=== PATIENT | male | born 1950 | race Caucasian/White ===

== ENCOUNTER 2018-03-08 05:53 | Day surgery (SDC) | payer MEDICARE, OTHER, SELFPAY ==
[2018-03-08] VITALS (7 sets, daily range): BP systolic 100–150; BP diastolic 61–89; PULSE 57–62; RESP 16; TEMP 36.2–36.6; O2SAT 94–99; BMI 24.2
[2018-03-08] MEDS: Cefazolin 2 GM in 0.9% Normal Saline 100 ML IV (07:23)
[2018-03-08] MEDS: Lubricating Jelly 60 GM Tube 30 GM TOPICAL (07:45)
--- NOTE | 2018-03-08 07:49 | PCM.DC.URO ---
Discharge Diet: Light diet - advance as tolerated Allergies/Adverse Reactions: Allergies morphine Allergy (Verified 03/06/18 14:45) Vomiting Medications to take at Discharge NK [NK] 03/06/18 Primary Care Physician: Care Physician,No Primary [Primary Care Provider] - Test Results: Test results from this visit will be discussed in further detail at your follow-up appointment, if applicable. Please Follow Up With: Bo West MD
--- NOTE | 2018-03-08 07:50 | PCM.OPRPT ---
Report of Operation Date of Procedure: 03/08/18 Pre-Operative Diagnosis: Right obstructing kidney stones and right hydronephrosis Post-Operative Diagnosis: Same Surgery/Procedure Performed:: Cystoscopy, right retrograde pyelogram, right stent placement Description of Surgical Findings:: 67-year-old male whose obstructing stones on CAT scan has hydronephrosis is been having severe pain off and on the right kidney. Today when taken for surgery for cystoscopy and stent placement to alleviate the obstruction and then will plan for definitive surgery for his stones later this month. 67-year-old male taken back to the operating room at the [facility] he was placed in dorsal lithotomy position went of the bladder with a 21 Tristanian rigid cystourethroscope the entire length the urethra is normal prostate was normal inside the bladder some debris from stone material, I then cannulated the right ureteral orifice with a Glidewire and a Pollack catheter performed a retrograde pyelogram on the retrograde pyelogram he could see the obstruction and the stones appeared radiolucent. I then advanced a wire up the Pollack catheter into the kidney and then over the wire place a stent X Tristanian by 24 cm stent. Pulled the wire stent: Kidney bladder good position drain the bladder patient's anesthesia was reversed taken back to PACU good condition plan is to bring him back later this month for definitive stone treatment. Type of Anesthesia:: General Drains: stent right side - Admit VTE Documentation VTE Present on Admission: No VTE Mechan Device Prophylaxis: SCD's
== END 2018-03-08 10:38 | disposition home or self-care (01) ==
LOC: SDC 05:55 → AC 05:56
PROVIDERS: Visit Provider Urology
PROC: (CPT 52332; principal; 2018-03-08 07:20)
DX: N13.2 Hydronephrosis with renal and ureteral calculous obstruction (principal); K21.9 Gastro-esophageal reflux disease without esophagitis
CPT/HCPCS: 52332; 76000; J7120; C1769; C2617; J2405

== ENCOUNTER 2018-03-12 10:54 | Inpatient (IN) | payer MEDICARE, OTHER, SELFPAY ==
[2018-03-12] VITALS (13 sets, daily range): BP systolic 91–134; BP diastolic 49–77; PULSE 92–116; RESP 16–32; TEMP 37.4–39.5; O2SAT 89–97; BMI 25.0; BMI 24.2
--- NOTE | 2018-03-12 11:29 | ED.DCSUM_ITS ---
- ER Visit Summary Date of Service: 03/12/18 Chief Complaint: Fever History of Present Illness: The patient is a 67 M status post ureteral calculi on the right with a ureteral stent placed by Dr. Hawthorne on . Yesterday patient started having fever and chills. He also had one episode of nausea and vomiting. No diarrhea. No abdominal pain. No cough. He had a similar event one other time when he had a urinary tract infection with a kidney stone. Physical Examination: Older male no acute distress. Vital signs are stable he does have a fever of 103.1. Blood pressure 134/77. He does not look septic or toxic. H EENT exam unremarkable. Neck nontender. Lungs clear to auscultation bilaterally. Heart regular rhythm no murmur. Abdomen is soft and nondistended. Normal bowel sounds no peritoneal signs. Moving all 4 extremities. Calves nontender. Neurologically he is awake and alert with no focal motor or sensory deficits. Back is nontender. Skin is unremarkable. No peripheral edema. Test Results: CBC shows a white count 12.2. Normal hemoglobin. No bands. Chemistries unremarkable. Gap of 8. Creatinine 1.1. Urinalysis shows greater than 100 white cells. Greater than 100 red cells and 4+ bacteria. A culture was sent. Cultures are also pending. Emergency Department Course and Treatment: Patient treated with a liter normal saline. P.o. Tylenol. Also treated with IV Rocephin. On repeat exam no significant change. Discussed the patient is . In the past he had a stone with an infection and needed to be hospitalized. They requested the patient be hospitalized for further treatment. Treatment Plan: I spoke to the hospitalist Dr. Kalani Zapien and the patient will be admitted. Disposition: [place] Impression: Acute fever Status post right 9 mm kidney stone with ureteral stent This note was generated with [employer] dictation software. It may contain incorrect words, spelling, and punctuation that were not noted in review of the chart prior to signing ED Disposition - Plan for ED Patient: Chief Complaint: Fever Referrals: Care Physician,No Primary [Primary Care Provider] -
[2018-03-12] MEDS: Acetaminophen 500 MG Tablet 1000 MG PO (11:39)
[2018-03-12] MEDS: 0.9% Normal Saline 1,000 ML 1000 ML IV (11:39)
[2018-03-12] MEDS: Ondansetron 4 MG/2 ML Vial IV (11:39)
[2018-03-12 11:45] LABS: Absolute Lymphocyte Count 0.85 X10^3/ul (0.83-4.51); Absolute Neutrophil Count 10.8 X10^3/uL (2.0-7.7); Basophil# 0.01 X10^3/uL; Basophil% 0.1 % (0-1); Hematocrit 43.9 % (40-54); Hemoglobin 14.9 g/dl (13.0-16.5); Lymphocyte # 0.85 X10^3/ul (4.0); Mean Corp Hgb Conc 33.9 g/gl (32-36); Mean Corpuscular Hgb 31.1 pg (27.0-32.0); Mean Corpuscular Volume 91.6 fL (80-94); Mean Platelet Vol. 8.4 fl (6.2-12.0); Monocyte% 4.1 % (0-10); Neutrophil # 10.81 X10^3/uL (2.7-7.7); Neutrophil % 88.7 % (47-70); Platelet Count 157 K/mm3 (150-450); RBC Distribution Width CV 12.8 % (11.6-14.6); RBC Distribution Width SD 42.9 fl (35.1-43.9); Red Blood Count 4.79 M/mm3 (4.6-6.2); White Blood Count 12.2 K/mm3 (4.4-11.0)
[2018-03-12 11:47] LABS: POSITIVE COUNT NO; POSITIVE DIFFERENTIAL NO; POSITIVE MORPHOLOGY NO
[2018-03-12 12:04] LABS: Anion Gap 8 (5-15); BUN 15 mg/dL (7-18); BUN/Creat Ratio 12.9 RATIO (10-20); Calcium,Total 9.1 mg/dL (8.5-10.1); Chloride 102 mmol/L (98-107); Creatinine, Serum 1.16 mg/dL (0.70-1.30); EST Glomerular Filtration Rate 66 mL/min (>60); Est Glom Filt Rate - Afr Amer 80 mL/min (>60); Estimated Creatinine Clearance 58.15 ml/min; Glucose 130 mg/dL (74-106); Potassium 3.9 mmol/L (3.5-5.1); Sodium Level 137 mmol/L (136-145)
[2018-03-12 14:22] LABS: Mucous, Urine 0 SEEN /hpf (<or=2+); Squamous Epithelial Cells - UA 0 SEEN /hpf (0-5)
[2018-03-12 14:25] LABS: Color, Urine Red (Yellow); Glucose, Dipstick Normal (Normal); Ketone-Dipstick 5 mg/dl (Negative); Leukocyte Esterase-Dipstick 500 /ul (Negative); Nitrite-Dipstick Negative (Negative); Occult Blood-Urine 250 /ul (Negative); Protein-Dipstick 100 mg/dl (Negative); Specific Gravity, Urine 1.015 (1.002-1.030); Urine Bilirubin Dipstick Negative (Negative); Urine Clarity Turbid (Clear); Urine Urobilinogen 1 mg/dl (Normal); Urine pH 6.5 (5.0 - 8.0)
[2018-03-12 14:35] LABS: Bacteria 4+ /hpf (None Seen); Red Blood Cells-Urine > 100 SEEN /hpf (0-5); White Blood Cells >100 SEEN /hpf (0-5)
--- NOTE | 2018-03-12 16:37 | NURSING ---
DR ASCENCIO IN ER
--- NOTE | 2018-03-12 16:37 | NURSING ---
MED SURG SESPSIS, UTI, RECENT STENT WHITE
--- NOTE | 2018-03-12 16:47 | PCM.HP.STD ---
Problem List (1) Sepsis Status: Acute (2) UTI (urinary tract infection) Status: Acute (3) Renal calculi Status: Chronic (4) GERD (gastroesophageal reflux disease) Status: Chronic (5) Esophageal ulcer Status: Chronic History of Present Illness Date of Admission: 03/12/18 Chief Complaint: fever The patient is a 67 year old M with a past medical hx of renal calculi recently with right 9mm stone s/p stent placement on the with plan for laser litho on 03/30, also with hx of GERD, esophageal ulcers, who presents to the ER with fever since yesterday. Pt had some hematuria initially after the stent but since has resolved. He has had dysuria, fevers chills, rigors and right sided abdominal pain when urinating since yesterday. He has had nausea and vomiting this AM. No flank pain. He appears septic in the ER with tachycardia fever and leukocytosis. He was given IV rocephin. He has a hx of pyelo after a cystoscopy in 2004. Dr. Ruiz will be consulted. [] Past Medical History Past Medical History (Chronic Problems): Chronic Problems Renal calculi (Chronic) GERD (gastroesophageal reflux disease) (Chronic) Esophageal ulcer (Chronic) Allergies morphine Allergy (Verified 03/12/18 10:54) Vomiting Home Medications: Ambulatory Orders Medication Instructions Recorded Cimetidine [Tagamet Hb] 200 mg PO PRN PRN 03/12/18 Hydrocodone/Acetaminophen 1 tab PO Q6H PRN PRN 03/12/18 [Hydrocodone-Acetamin 5-325 mg] Naproxen [Naproxen] 500 mg PO DAILY 03/12/18 Surgical History: - - ankle repair, ulnar surgery, elbow repair Psychiatric History: No pertinent psych hx Lives: Spouse/ Significant Other Smoking Status: Never smoker Tobacco Use: Non-smoker Alcohol: None Drugs: None Review of Systems Constitutional: Reports: Chills, Fever, - - rigors. Denies: Weight Change HEENT: Denies: Head Aches, Sinus Congestion, Sinus Drainage Cardiovascular: Denies: Chest Pain, Palpitations Respiratory: Denies: Cough, Shortness of breath at rest, Sputum production Gastrointestinal: Reports: Abdominal Pain, Nausea, Vomiting Genitourinary: Reports: Dysuria, Hematuria Musculoskeletal: Denies: Joint Pain, Joint Tenderness Skin: Denies: Rash, Wounds Neurological: Denies: Numbness, Tingling, Focal weakness Psychiatric: Denies: Anxiety, Depression, Homicidal Ideations, Suicidal Ideations Hematologic/ Lymphatic: Denies: Easy Bruising, Easy Bleeding VTE Information - Inpt Only VTE Present on Admission: No VTE Mechan Device Prophylaxis: SCD's, None VTE Pharm Prophylaxis ordered?: Yes Patient Problems: Active and Suspected Problems Sepsis (Acute) UTI (urinary tract infection) (Acute) - Physical Exam General: Alert, Oriented x3, Cooperative HEENT: Atraumatic, PERRLA, EOMI, Normocephalic Neck: Supple, No JVD, Negative Carotid Bruits Lungs: Clear to auscultation, Normal air movement Cardiovascular: No murmurs, Tachycardic Abdomen: Bowel Sounds Present, Soft, Non Tender, - - no cva tenderness Extremities: No edema, Capillary Refill Less than 3 Seconds Skin: No rashes, No breakdown Musculoskeletal: No Tenderness to Palpation of Joints or Extremities Neurological: Cranial nerves II-XII grossly intact Psych/Mental Status: Normal Affect, Appropriate, Alert and oriented to time, place, person, mood and affect Vital Signs Temp Pulse Resp BP Pulse Ox 99.9 F H 116 H 18 113/72 93 03/12/18 13:12 03/12/18 16:25 03/12/18 16:25 03/12/18 16:25 03/12/18 16:25 Oxygen Flow Rate (L/min) 3 Oxygen Delivery Method Room Air Weight: 165 lb Body Mass Index (BMI) 25.0 Laboratory Tests Past 24 Hrs 03/12/18 03/12/18 03/12/18 11:37 11:37 14:15 WBC 12.2 H RBC 4.79 Hgb 14.9 Hct 43.9 MCV 91.6 MCH 31.1 MCHC 33.9 RDW 12.8 RDW Differential 42.9 Plt Count 157 MPV 8.4 Immature Gran % (Auto) 0.100 Neut % (Auto) 88.7 H Lymph % (Auto) 7.0 L [place] % (Auto) 4.1 Eos % (Auto) 0.0 Baso % (Auto) 0.1 Absolute Neuts (auto) 10.8 H Absolute Lymphs (auto) 0.85 Total Counted Not Reportable Sodium 137 Potassium 3.9 Chloride 102 Carbon Dioxide 27.0 Anion Gap 8 BUN 15 Creatinine 1.16 Estim Creat Clear Calc 58.15 Est GFR (MDRD) Af Amer 80 Est GFR (MDRD) Non-Af 66 BUN/Creatinine Ratio 12.9 Glucose 130 H Calcium 9.1 Urine Color Red Urine Clarity Turbid Urine pH 6.5 Ur Specific [place] 1.015 Urine Protein 100 H Urine Glucose (UA) Normal Urine Ketones 5 H Urine Occult Blood 250 H Urine Nitrite Negative Urine Bilirubin Negative Urine Urobilinogen 1 H Ur Leukocyte Esterase 500 H Urine RBC > 100 SEEN Urine WBC >100 SEEN Ur Squamous Epith Cells 0 SEEN Urine Bacteria 4+ Urine Mucus 0 SEEN Assessment/Plan All Active Problems Sepsis (Acute) UTI (urinary tract infection) (Acute) 1. Acute sepsis 2/2 acute UTI s/p recent stenting for 9mm renal calculi 03/08/2018 - consult Jenna Mason out of town. Continue rocephin + gent. + Fever, tachy, leukocytosis, toxic appearance in the ER. LA pending. CT abdomen pending. + UA, culture pending. +subjective fever, chills, rigors, abdominal pain, dysuria, hematuria. -initial plan was for laser lithotripsy 03.30.18 -hx multiple stones. 2. GERD/esophageal ulcers - PPI DVT ppx: heparin This patient was seen by Kole Ramirez PA-C under the supervision of Doctor Rupali.
--- NOTE | 2018-03-12 16:51 | CT_ITS ---
STUDY: CT ABDOMEN AND PELVIS WITHOUT CONTRAST REASON FOR EXAM: Male, 67 years old. Fever and chills, stent placed 4 days ago RADIATION DOSAGE (If Supplied By Facility): CTDIvol = ( 9.14 ) mGy, DLP = ( 470.36 ) mGycm TECHNIQUE: Transaxial images were obtained from the dome of the diaphragm to the symphysis pubis without oral contrast, and without intravenous contrast. Sagittal and coronal images were reconstructed. Individualized dose optimization techniques were used for this CT. COMPARISON: None. FINDINGS: There is minimal bibasilar atelectasis. There is a trace pericardial effusion. The heart size is within normal limits. Coronary arterial calcifications are present. There is decreased attenuation of the liver consistent with steatosis. There is a tiny calcified gallstone in the gallbladder. Normal spleen. Normal pancreas. Normal bilateral adrenal glands. There is a right ureteral stent appearing in adequate position. There are several nonobstructing calculi in the lower pole of the right kidney measuring up to 6 mm. No calculi are seen along the length of the stent. A mild right hydronephrosis is present. There is right perinephric stranding. There is a 4.9 cm left renal cyst. There is a small hiatal hernia. Normal small intestine. There is colonic diverticulosis with no evidence of associated diverticulitis. The appendix is visualized and appears normal. There are calcified plaques of the abdominal aorta. Normal inferior vena cava. Normal retroperitoneum. There is a 2 mm calculus in the gravity dependent portion of the urinary bladder. Prostatic calcifications are seen. The seminal vesicles and seminal vesicle angles appear normal. There is a small umbilical hernia containing fat. There are degenerative changes of the visualized thoracolumbar spine. CT/Abdomen/Pelvis without Cont IMPRESSION: 1. Minimal bibasilar atelectasis. 2. Trace pericardial effusion. 3. Cholelithiasis. 4. Hepatic steatosis. 5. Right ureteral stent appearing in adequate position. There are several nonobstructing calculi in the lower pole of the right kidney measuring up to 6 mm. No calculi are seen along the length of the stent. A mild right hydronephrosis is present. There is right perinephric stranding. 6. 4.9 cm left renal cyst. 7. Colonic diverticulosis with no evidence of associated diverticulitis. 8. 2 mm calculus seen in the urinary bladder. 9. Small fat-containing umbilical hernia. Electronically Signed: Andres Sheppard MD at 17:33 EDT , Service support ,
[2018-03-12] MEDS: 0.9% Normal Saline 1,000 ML 999 ML IV ×2 (17:43→20:40)
[2018-03-12] MEDS: Acetaminophen 325 MG Tablet 650 MG PO (17:43)
[2018-03-12] MEDS: 0.9% Normal Saline 1,000 ML 150 ML IV (18:47)
--- NOTE | 2018-03-12 19:07 | PCM.CONS.GEN ---
Problem List (1) UTI (urinary tract infection) Status: Acute (2) Renal calculi Status: Chronic Reason for Consult Date of Consultation: 03/12/18 History of Present Illness: The patient is a 67 year old M who had a right ureteral stent inserted by Dr. West for right urolithiasis. He was doing well until yesterday when he started to develop fever. This morning he awoke to increased flank pain, fever to 100.6, nausea and vomiting. He presented to the emergency room for evaluation and treatment. In the emergency room he was found to have a fever of 103. He was admitted for evaluation and treatment. At this time he is beginning to feel improved with lessening of his nausea and less flank pain. He has a long-standing history of stones, this is his seventh round of urolithiasis. He has had a 24-hour urinalysis in the past and he was recommended to be on a low-salt diet. He is scheduled for urolithiasis on 03/30. is at bedside. Past Medical History Past Medical History (Chronic Problems): Chronic Problems Renal calculi (Chronic) GERD (gastroesophageal reflux disease) (Chronic) Esophageal ulcer (Chronic) Allergies morphine Allergy (Verified 03/12/18 10:54) Vomiting Home Medications: Ambulatory Orders Medication Instructions Recorded Cimetidine [Tagamet Hb] 200 mg PO PRN PRN 03/12/18 Hydrocodone/Acetaminophen 1 tab PO Q6H PRN PRN 03/12/18 [Hydrocodone-Acetamin 5-325 mg] Naproxen [Naproxen] 500 mg PO DAILY 03/12/18 Surgical History: - - ankle repair, ulnar surgery, elbow repair, multiple procedures for urolithiasis. Psychiatric History: No pertinent psych hx Lives: Spouse/ Significant Other Smoking Status: Never smoker Tobacco Use: Non-smoker Alcohol: None Drugs: None Review of Systems Constitutional: Reports: Anorexia, Chills, Fever, Weakness, Fatigue Eyes: Denies: Vision Change HEENT: Denies: Difficulty Hearing Cardiovascular: Denies: Chest Pain Respiratory: Denies: Shortness of Breath Gastrointestinal: Reports: Abdominal Pain, Nausea, Vomiting Genitourinary: Denies: Dysuria, Incontinence, Retention Neurological: Denies: Balance problems Patient Problems: Active and Suspected Problems Sepsis (Acute) UTI (urinary tract infection) (Acute) - Physical Exam General: Alert, Oriented x3, Cooperative, No apparent distress HEENT: Atraumatic Oral: Dry Mucosa Neck: Trachea Midline Lungs: Normal air movement Abdomen: Soft, Non-Distended Extremities: No Calf Tenderness Skin: No rashes Musculoskeletal: No Muscle Wasting Neurological: Cranial nerves II-XII grossly intact, Neuro grossly intact Psych/Mental Status: Normal Affect, Appropriate Vital Signs Temp Pulse Resp BP Pulse Ox 101.3 F H 101 H 16 102/63 94 03/12/18 18:43 03/12/18 18:43 03/12/18 18:43 03/12/18 18:43 03/12/18 18:43 Oxygen Flow Rate (L/min) 2 Oxygen Delivery Method Nasal Cannula Weight: 72.178 kg Body Mass Index (BMI) 24.[address] scan report and images reviewed. Stent in position, bladder distended with mild distention of right collecting system likely from full bladder and the stent. Assessment/Plan All Active Problems Sepsis (Acute) UTI (urinary tract infection) (Acute) 67-year-old male with urosepsis status post right ureteral stent insertion for right renal stone. 1. Gonzalez catheter to straight drain, remove prior to discharge 2. IV fluid hydration and supportive care 3. Antibiotics and await culture results 4. Stent in appropriate position no need for surgical intervention at this time 5. Will follow during this admission and he can follow-up with Dr. West after discharge.
[2018-03-12] MEDS: Pantoprazole Sodium 20 MG Tablet PO (21:04)
[2018-03-12 21:18] LABS: Lactic Acid 1.4 mmol/L (0.4-2.0)
[2018-03-12] MEDS: Ibuprofen 600 MG Tablet PO (22:46)
[2018-03-13] VITALS (68 sets, daily range): BP systolic 73–120; BP diastolic 45–91; PULSE 70–99; RESP 12–255; TEMP 36.4–39.2; O2SAT 86–100
--- NOTE | 2018-03-13 02:34 | NURSING ---
Gave hespan as per Dr Martínez. Nurse initiated telemetry due to pt's hypotension. Full assessment conducted. Pt denied any pain. Pt very diaphoretic since temperature returned to normal. Lethargic but responds to voice and answers questions appropriately. Denies any dizziness at present. Urine output 75ml since approx 2300hrs. Remains hypotensive post infusion and increasing oxygen demands. Now on 5L via NC keeping oxygen saturations at 92%. DENIZ Ledesma called Dr Martínez who ordered transfer to ICU. Report given to Crystal GUAMAN. Family and pt advised. Arranging transfer at this time.
--- NOTE | 2018-03-13 02:36 | NURSING ---
Pt being transferred to ICU at this time. Patient hypotensive with failed response to IVF boluses. Report given to Crystal GUAMAN.
--- NOTE | 2018-03-13 02:46 | CPS ---
o2 increased to 5 l/m by nurse for low sat
--- NOTE | 2018-03-13 03:10 | RAD_ITS ---
STUDY: X-RAY CHEST REASON FOR EXAM: Male, 67 years old. Dyspnea. Shortness of breath TECHNIQUE: Single AP portable view of the chest. COMPARISON: None. FINDINGS: There is ill-defined groundglass opacity in the right lung lower lobe suggesting pneumonia. There is no demonstrated pleural abnormality. Normal size heart. Normal mediastinum and crys. Normal visualized pulmonary arteries. Normal visualized aortic arch and descending thoracic aorta. Normal visualized thoracic spine. Normal visualized ribs, clavicles, and shoulders. There is no demonstrated abnormality of the visualized soft tissue structures of the upper abdomen. RAD/Chest 1 View (Portable) IMPRESSION: Possible right lower lobe pneumonia. Electronically Signed: Darrel Sheehan MD at 3:26 EDT Tel , Service support ,
[2018-03-13] MEDS: 0.9% Normal Saline 1,000 ML 150 ML IV (03:29)
[2018-03-13 03:54] LABS: Anion Gap 11 (5-15); BUN 18 mg/dL (7-18); BUN/Creat Ratio 15.9 RATIO (10-20); Chloride 111 mmol/L (98-107); Creatinine, Serum 1.13 mg/dL (0.70-1.30); EST Glomerular Filtration Rate 68 mL/min (>60); Est Glom Filt Rate - Afr Amer 83 mL/min (>60); Estimated Creatinine Clearance 59.69 ml/min; Glucose 113 mg/dL (74-106); Potassium 3.3 mmol/L (3.5-5.1); Sodium Level 144 mmol/L (136-145)
[2018-03-13 03:59] LABS: International Normalized Ratio 1.6; Prothrombin Time (Protime)PT. 18.8 SECONDS (11.7-14.9)
[2018-03-13 04:07] LABS: Absolute Neutrophil Count 18.9 X10^3/uL (2.0-7.7); Basophil# 0.01 X10^3/uL; Hematocrit 33.9 % (40-54); Hemoglobin 11.4 g/dl (13.0-16.5); Lymphocyte % 2.9 % (19-41); Mean Corp Hgb Conc 33.6 g/gl (32-36); Mean Corpuscular Hgb 31.2 pg (27.0-32.0); Mean Corpuscular Volume 92.9 fL (80-94); Mean Platelet Vol. 8.7 fl (6.2-12.0); Monocyte# 1.11 X10^3/uL; Monocyte% 5.4 % (0-10); Neutrophil # 18.94 X10^3/uL (2.7-7.7); Neutrophil % 91.3 % (47-70); Platelet Count 163 K/mm3 (150-450); RBC Distribution Width CV 13.1 % (11.6-14.6); RBC Distribution Width SD 43.9 fl (35.1-43.9); Red Blood Count 3.65 M/mm3 (4.6-6.2); White Blood Count 20.7 K/mm3 (4.4-11.0)
[2018-03-13 04:09] LABS: Lactic Acid 1.6 mmol/L (0.4-2.0)
[2018-03-13 04:09] LABS: Differential Indicated SCAN CRITERIA MET; POSITIVE COUNT NO; POSITIVE DIFFERENTIAL YES; POSITIVE MORPHOLOGY YES
--- NOTE | 2018-03-13 05:55 | CPS ---
PT PLACED ON BIPAP PER DR TORRES-PT HAS FULL THICK TYLER-NURSING AWARE OF LEAK
[2018-03-13 06:39] LABS: M R Staph aureus DNA By PCR Negative (Negative); Probe Check PASS; Specimen Processing Control PASS
--- NOTE | 2018-03-13 07:23 | CON.PCM_ITS ---
Reason for Consult Date of Consultation: 03/13/18 Reason for Consultation: Septic shock History of Present Illness: The patient is a 67-year-old male, with a history as outlined below, who initially presented to the emergency department on March 12 following a recent right ureteral stent placement with complaints of fevers, chills, nausea and vomiting. On March 08, the patient underwent cystoscopy with right retrograde pyelogram and right stent placement due to a right obstructing stone and subsequent hydronephrosis. The patient was discharged home the same day. On presentation to the emergency department, the patient was noted to have a fever of 103.1?F. He was hemodynamically stable, nonetheless. The patient was initially maintaining appropriate oxygen saturations on room air. Laboratory evaluation revealed elevated white blood cell count to 12,000. Chemistry profile was largely unremarkable. Serum lactate was within normal limits. Urinalysis revealed positive leukocyte esterase with greater than 100 white blood cells and 4+ bacteria. The patient was provided supplemental IV fluid hydration and started on antibiotics. CT abdomen/pelvis revealed several nonobstructing calculi in lower pole of the right kidney measuring upwards of 6 mm. There is a mild degree of right-sided hydronephrosis present. Colonic diverticulosis was noted without evidence of associated diverticulitis. The patient was discussed with the covering urology provider, Dr. Ruiz. The patient was initially admitted to medical surgical 2 for ongoing management. Overnight, a rapid response was called after the patient developed hypotension. The patient was also noted to be increasingly lethargic. The patient was provided with supplemental IV fluid hydration and for reasons that are not clear to me was administered hetastarch. Despite this, the patient remained hypotensive and required the eventual initiation of vasopressor support and subsequent transfer to the medical intensive care unit. Repeat plain film chest x-ray from this morning revealed no acute infiltrative process. Past Medical History Past Medical History (Chronic Problems): Chronic Problems Renal calculi (Chronic) GERD (gastroesophageal reflux disease) (Chronic) Esophageal ulcer (Chronic) Allergies morphine Allergy (Verified 03/12/18 10:54) Vomiting Home Medications: Ambulatory Orders Medication Instructions Recorded Cimetidine [Tagamet Hb] 200 mg PO PRN PRN 03/12/18 Hydrocodone/Acetaminophen 1 tab PO Q6H PRN PRN 03/12/18 [Hydrocodone-Acetamin 5-325 mg] Naproxen [Naproxen] 500 mg PO DAILY 03/12/18 Surgical History: - - ankle repair, ulnar surgery, elbow repair, multiple procedures for urolithiasis. Psychiatric History: No pertinent psych hx Lives: Spouse/ Significant Other Smoking Status: Never smoker Tobacco Use: Non-smoker Alcohol: None Drugs: None Review of Systems Constitutional: Reports: Fever, Weakness Eyes: Denies: Blurred vision, Double vision HEENT: Denies: Head Aches, Sinus Congestion, Sinus Drainage Cardiovascular: Denies: Chest Pain, Palpitations Respiratory: Denies: Cough, Shortness of breath at rest, Sputum production Gastrointestinal: Reports: Nausea Genitourinary: Denies: Dysuria Musculoskeletal: Denies: Joint Pain, Joint Tenderness Skin: Denies: Rash, Wounds Neurological: Denies: Numbness, Tingling, Focal weakness Psychiatric: Denies: Anxiety, Depression, Homicidal Ideations, Suicidal Ideations Hematologic/ Lymphatic: Denies: Easy Bruising, Easy Bleeding Patient Problems: Active and Suspected Problems Sepsis (Acute) UTI (urinary tract infection) (Acute) Objective: The patient's most recent lab work, culture data and imaging studies have all been personally reviewed. Blood and urine cultures are currently pending. MRSA screen was negative. - Physical Exam General: Alert, Cooperative, - - BiPAP currently in place HEENT: Atraumatic, PERRLA, Normocephalic Oral: Dry Mucosa Neck: Supple, No Nodes, Trachea Midline Lungs: Normal air movement, No rhonchi, No wheeze, No rales Cardiovascular: Regular rate, Regular Rhythm, Normal S1, Normal S2, No murmurs Abdomen: Bowel Sounds Present, Soft, Non Tender Extremities: No clubbing, No cyanosis, No edema Skin: No breakdown Musculoskeletal: No Tenderness to Palpation of Joints or Extremities Lymphatic: No Cervical, Supraclavicular, or Inguinal Adenopathy Neurological: Neuro grossly intact Psych/Mental Status: Normal Affect, Appropriate Vital Signs Temp Pulse Resp BP Pulse Ox 98.0 F 77 17 79/64 L 98 03/13/18 05:00 03/13/18 06:00 03/13/18 06:00 03/13/18 06:00 03/13/18 06:00 Oxygen Flow Rate (L/min) 15 Oxygen Delivery Method Bi-pap Weight: 159 lb 2 oz Body Mass Index (BMI) 24.2 Intake and Output for Last 24 Hours 03/11/18 03/12/18 03/13/18 23:59 23:59 23:59 Intake Total 2930 / 2930 1626 / 1626 Output Total 475 / 475 75 / 75 Balance 2455 / 2455 1551 / 1551 Laboratory Tests Past 24 Hrs 03/12/18 03/13/18 03/13/18 20:24 03:00 03:30 WBC RBC Hgb Hct MCV MCH MCHC RDW RDW Differential Plt Count MPV Immature Gran % (Auto) Neut % (Auto) Lymph % (Auto) [place] % (Auto) Eos % (Auto) Baso % (Auto) Absolute Neuts (auto) Absolute Lymphs (auto) Total Counted PT INR Sodium 144 Potassium 3.3 L Chloride 111 H Carbon Dioxide 22.0 Anion Gap 11 BUN 18 Creatinine 1.13 Estim Creat Clear Calc 59.69 Est GFR (MDRD) Af Amer 83 Est GFR (MDRD) Non-Af 68 BUN/Creatinine Ratio 15.9 Glucose 113 H Lactic Acid 1.4 Calcium 7.0 L MRSA (PCR) Negative 03/13/18 03/13/18 03/13/18 03:30 03:30 03:40 WBC 20.7 H RBC 3.65 L Hgb 11.4 L Hct 33.9 L MCV 92.9 MCH 31.2 MCHC 33.6 RDW 13.1 RDW Differential 43.9 Plt Count 163 MPV 8.7 Immature Gran % (Auto) 0.400 Neut % (Auto) 91.3 H Lymph % (Auto) 2.9 L [place] % (Auto) 5.4 Eos % (Auto) 0.0 Baso % (Auto) 0.0 Absolute Neuts (auto) 18.9 H Absolute Lymphs (auto) 0.60 L Total Counted Not Reportable PT 18.8 H INR 1.6 Sodium Potassium Chloride Carbon Dioxide Anion Gap BUN Creatinine Estim Creat Clear Calc Est GFR (MDRD) Af Amer Est GFR (MDRD) Non-Af BUN/Creatinine Ratio Glucose Lactic Acid 1.6 Calcium MRSA (PCR) Clinical Impression(s) from Imaging Studies Abdomen/Pelvis CT 03/12/18 16:51 IMPRESSION: 1. Minimal bibasilar atelectasis. 2. Trace pericardial effusion. 3. Cholelithiasis. 4. Hepatic steatosis. 5. Right ureteral stent appearing in adequate position. There are several nonobstructing calculi in the lower pole of the right kidney measuring up to 6 mm. No calculi are seen along the length of the stent. A mild right hydronephrosis is present. There is right perinephric stranding. 6. 4.9 cm left renal cyst. 7. Colonic diverticulosis with no evidence of associated diverticulitis. 8. 2 mm calculus seen in the urinary bladder. 9. Small fat-containing umbilical hernia. Electronically Signed: Andres Sheppard MD at 17:33 EDT , Service support , Chest X-Ray 03/13/18 03:10 IMPRESSION: Possible right lower lobe pneumonia. Electronically Signed: Darrel Sheehan MD at 3:26 EDT Tel , Service support , Assessment/Plan Active and Suspected Problems Sepsis (Acute) UTI (urinary tract infection) (Acute) RECOMMENDATIONS: 1. Continue Levophed to maintain a mean arterial pressure at or above 65 mmHg. 2. Discontinue azithromycin and ceftriaxone. Transition to Zosyn monotherapy for now, pending infectious workup. 3. Discontinue Dilaudid and oxycodone. 4. Discontinue normal saline, given rising sodium and chloride levels and is to transition to 0.45(half normal) at 150mL/hr 5. Potassium repletion as ordered. 6. Obtain arterial blood gas and wean from BiPAP as tolerated. 7. Check troponin and obtain echocardiogram. IMPRESSIONS: 1. Septic shock secondary to enterococcus cystitis/pyelonephritis The patient recently underwent ureteral manipulation and stent placement only to go on to develop septic shock secondary to enterococcus cystitis/ pyelonephritis. He has been adequately volume resuscitated at this time. Will continue current supportive measures with broad-spectrum antibiotics and vasopressor support to maintain a mean arterial pressure at or above 65 mmHg. 2. Acute hypoxic respiratory failure Unclear etiology, as the patient's plain film chest x-ray was largely clear of any form of infiltrates. The patient was eventually started on BiPAP. However , a follow-up arterial blood gas revealed normal gas exchange with an elevated PO2 on 40% FiO2. The patient has since been transitioned back to nasal cannula and is doing well from that perspective. We will continue to wean supplemental oxygen to maintain saturations at or above 90%. Encourage incentive spirometer use and mobilize patient as tolerated. 3. Hypokalemia Electrolyte repletion is underway. Recheck levels tomorrow morning. 4. Troponin elevation Likely secondary to demand ischemia in the setting of #1. Continue to trend troponins and obtain echocardiogram. TIME: 40 minutes of critical care time, independent of procedures, was spent addressing the patient's septic shock secondary to enterococcus cystitis, acute hypoxic respiratory failure, hypokalemia, troponin elevation, review of all data and collaboration with the care team. ([id number]) Code Visit 9xxxx: [id number] Critical care first hour
--- NOTE | 2018-03-13 08:11 | ECHOD_ITS ---
Reason For Study: DYSPNEA Procedure This was a 2D Doppler, Color Flow transthoracic echocardiogram. Exam performed portable in ICU/CCU. Left Ventricle Normal LV size. Left ventricular systolic function is normal. The estimated ejection fraction is 53 %. No evidence for diastolic dysfunction. No regional wall motion abnormalities noted. Right Ventricle Normal RV size. Normal systolic function. Atria The left atrium is moderately enlarged. Normal right atrium. Mitral Valve Normal mitral valve. Mild (1+) mitral valve insufficiency. Tricuspid Valve Normal tricuspid valve. Mild (1+) tricuspid valve insufficiency. Pulmonary artery systolic pressure is 27 mmHg. Aortic Valve Normal aortic valve. Trisinus/trileaflet aortic valve. Pulmonic Valve Normal pulmonic valve. Great Vessels Normal aortic root. The pulmonary artery is normal size. Normal inferior vena cava. Pericardium/Pleural No pericardial effusion. MMode/2D Measurements & Calculations LVIDd: 4.2 cm IVSd: 1.1 cm Ao root diam: 3.5 cm LVIDs: 2.9 cm LVPWd: 1.0 cm LA dimension: 4.4 cm RVDd: 4.2 cm FS: 32.1 % LAV(MOD-bp): 79.1 ml LA A4 area: 26.3 cm2 RA A4 area: 14.5 cm2 LAV(MOD-bp) Indexed: 42.5 ml/m2 LAV(MOD-sp2): 58.9 ml LAV(MOD-sp4): 93.9 ml Time Measurements MV dec time: 0.19 sec Doppler Measurements & Calculations MV E max garfield: 57.6 cm/sec Lat Peak E' Garfield: 11.5 cm/sec Med Peak E' Garfield: 6.8 cm/sec MV A max garfield: 51.8 cm/sec E/E' lat: 5.0 E/E' med: 8.5 MV E/A: 1.1 Ao V2 max: 90.1 cm/sec LV V1 max: 63.9 cm/sec PA V2 max: 78.8 cm/sec Ao max P.2 mmHg LV V1 max P.6 mmHg PI end-d garfield: 116.7 cm/sec TR max garfield: 248.5 cm/sec TR max P.7 mmHg Interpretation Summary Normal LV size. Left ventricular systolic function is normal. The estimated ejection fraction is 53 %. No evidence for diastolic dysfunction. Mild (1+) mitral valve insufficiency. Mild (1+) tricuspid valve insufficiency. Ordering Physician: Tyshawn Shaw D.O. Referring Physician: Bo West Performed By: Yasmeen Perez, RDCS, RVT
--- NOTE | 2018-03-13 08:18 | PCM.PN.HOSP ---
Patient Problems: Active and Suspected Problems Sepsis (Acute) UTI (urinary tract infection) (Acute) Subjective: Says he feels ok, denies lightheadedness or SOB Vitals/I&O's: Vital Signs Temp Pulse Resp BP Pulse Ox 98.0 F 77 17 79/64 L 98 03/13/18 05:00 03/13/18 06:00 03/13/18 06:00 03/13/18 06:00 03/13/18 06:00 Oxygen Flow Rate (L/min) 15 Oxygen Delivery Method Bi-pap Weight: 169 lb 8.568 oz Body Mass Index (BMI) 24.2 Intake and Output for Last 24 Hours 03/11/18 03/12/18 03/13/18 23:59 23:59 23:59 Intake Total 2930 / 2930 2162.3 / 2162.3 Output Total 475 / 475 125 / 125 Balance 2455 / 2455 2037.3 / 2036.3 General: Alert, Oriented x3, Cooperative, No apparent distress, - - On BiPAP HEENT: Atraumatic, PERRLA, EOMI, Normocephalic Oral: Dry Mucosa Neck: Supple, No JVD Lungs: Clear to auscultation, Normal air movement, No rhonchi, No wheeze, No rales Cardiovascular: Regular rate, Regular Rhythm, Normal S1, Normal S2, No murmurs Abdomen: Soft, Non Tender, Non-Distended, No Hepato-splenomegaly Skin: No rashes, No breakdown Psych/Mental Status: Normal Affect, Appropriate Laboratory Results 03/12/18 20:24: Lactic Acid 1.4 03/13/18 03:00: MRSA (PCR) Negative 03/13/18 03:30: Sodium 144, Potassium 3.3 L, Chloride 111 H, Carbon Dioxide 22.0, Anion Gap 11, BUN 18, Creatinine 1.13, Estim Creat Clear Calc 59.69, Est GFR (MDRD) Af Amer 83, Est GFR (MDRD) Non-Af 68, BUN/Creatinine Ratio 15.9, Glucose 113 H, Calcium 7.0 L 03/13/18 03:30: WBC 20.7 H, RBC 3.65 L, Hgb 11.4 L, Hct 33.9 L, MCV 92.9, MCH 31.2, MCHC 33.6, RDW 13.1, RDW Differential 43.9, Plt Count 163, MPV 8.7, Immature Gran % (Auto) 0.400, Neut % (Auto) 91.3 H, Lymph % (Auto) 2.9 L, [place] % (Auto) 5.4, Eos % (Auto) 0.0, Baso % (Auto) 0.0, Absolute Neuts (auto) 18.9 H, Absolute Lymphs (auto) 0.60 L, Total Counted Not Reportable 03/13/18 03:30: PT 18.8 H, INR 1.6 03/13/18 03:40: Lactic Acid 1.6 Current Medications Acetaminophen (Tylenol) 650 mg PO Q6H PRN PRN PRN Reason: Mild Pain (scale 0-3)/T>100.7 Last Admin: 03/12/18 17:43 Dose: 650 mg Al Hydroxide/Mg Hydroxide (Mylanta Ii) 30 ml PO Q6H PRN PRN PRN Reason: Gastric burning Enoxaparin Sodium (Lovenox) 40 mg SC DAILY@1000 [facility] Norepinephrine Bitartrate 8 mg (/ Dextrose) 258 mls @ 9.67 mls/hr IV .[id number] COTY PRN Reason: 5 MCG/MIN Last Admin: 03/13/18 03:29 Dose: 9.67 mls/hr Piperacillin Sod/Tazobactam Sod (Zosyn) 3.375 gm in 50 mls @ 12.5 mls/hr IV Q8 COTY Potassium Chloride (Kcl 10meq/100ml) 10 meq in 100 mls @ 100 mls/hr IV BOLUS Q1H [facility] Stop: 03/13/18 11:59 Sodium Chloride () 1,000 mls @ 150 mls/hr IV .[id number] COTY Piperacillin Sod/Tazobactam Sod (Zosyn) 3.375 gm in 50 mls @ 100 mls/hr IV X1 ONE Stop: 03/13/18 09:29 Ibuprofen (Motrin) 600 mg PO Q6H PRN PRN PRN Reason: TEMP Last Admin: 03/12/18 22:46 Dose: 600 mg Magnesium Hydroxide (Milk Of Magnesia) 30 ml PO DAILY PRN PRN PRN Reason: Constipation Ondansetron HCl (Zofran) 4 mg IV Q8H PRN PRN PRN Reason: NAUSEA Pantoprazole Sodium (Protonix) 20 mg PO BID COTY Last Admin: 03/12/18 21:04 Dose: 20 mg Promethazine HCl (Phenergan) 12.5 mg IV Q6H PRN PRN PRN Reason: NAUSEA/VOMITING Sodium Chloride () 5 - 30 ml IV UD PRN PRN Reason: SALINE FLUSH Medical Necessity - Tobacco Use Smoking Status: Never smoker Tobacco Use: Non-smoker Assessment/Plan All Active Problems Sepsis (Acute) UTI (urinary tract infection) (Acute) 1. Sepsis 2/2 UTI s/p ureteral stenting for nephrolithiasis - C/s to URology - He was admitted to the ICU overnight and started on levophed - MAPs are >65 though SBP 88 - Low uop, so CW IVF - Switched from NS to 1/2NS for elevated NaCl - C/w the BiPAP and obtain an ABG for further evaluation - C/w Zosyn 2. GERD - stable - c/w PPI DVT: Lovenox Diet: Regular Code Visit Inpatient E&M: 01829 Subs Hosp L2
--- NOTE | 2018-03-13 08:24 | PN_ITS ---
Patient Problems: Active and Suspected Problems Sepsis (Acute) UTI (urinary tract infection) (Acute) Subjective: Says he feels ok, denies lightheadedness or SOB Vitals/I&O's: Vital Signs Temp Pulse Resp BP Pulse Ox 98.0 F 77 17 79/64 L 98 03/13/18 05:00 03/13/18 06:00 03/13/18 06:00 03/13/18 06:00 03/13/18 06:00 Oxygen Flow Rate (L/min) 15 Oxygen Delivery Method Bi-pap Weight: 169 lb 8.568 oz Body Mass Index (BMI) 24.2 Intake and Output for Last 24 Hours 03/11/18 03/12/18 03/13/18 23:59 23:59 23:59 Intake Total 2930 / 2930 2162.3 / 2162.3 Output Total 475 / 475 125 / 125 Balance 2455 / 2455 2037.3 / 2036.3 General: Alert, Oriented x3, Cooperative, No apparent distress, - - On BiPAP HEENT: Atraumatic, PERRLA, EOMI, Normocephalic Oral: Dry Mucosa Neck: Supple, No JVD Lungs: Clear to auscultation, Normal air movement, No rhonchi, No wheeze, No rales Cardiovascular: Regular rate, Regular Rhythm, Normal S1, Normal S2, No murmurs Abdomen: Soft, Non Tender, Non-Distended, No Hepato-splenomegaly Skin: No rashes, No breakdown Psych/Mental Status: Normal Affect, Appropriate Laboratory Results 03/12/18 20:24: Lactic Acid 1.4 03/13/18 03:00: MRSA (PCR) Negative 03/13/18 03:30: Sodium 144, Potassium 3.3 L, Chloride 111 H, Carbon Dioxide 22.0 , Anion Gap 11, BUN 18, Creatinine 1.13, Estim Creat Clear Calc 59.69, Est GFR ( MDRD) Af Amer 83, Est GFR (MDRD) Non-Af 68, BUN/Creatinine Ratio 15.9, Glucose 113 H, Calcium 7.0 L 03/13/18 03:30: WBC 20.7 H, RBC 3.65 L, Hgb 11.4 L, Hct 33.9 L, MCV 92.9, MCH 31.2, MCHC 33.6, RDW 13.1, RDW Differential 43.9, Plt Count 163, MPV 8.7, Immature Gran % (Auto) 0.400, Neut % (Auto) 91.3 H, Lymph % (Auto) 2.9 L, [place] % (Auto) 5.4, Eos % (Auto) 0.0, Baso % (Auto) 0.0, Absolute Neuts (auto) 18.9 H , Absolute Lymphs (auto) 0.60 L, Total Counted Not Reportable 03/13/18 03:30: PT 18.8 H, INR 1.6 03/13/18 03:40: Lactic Acid 1.6 Current Medications Acetaminophen (Tylenol) 650 mg PO Q6H PRN PRN PRN Reason: Mild Pain (scale 0-3)/T>100.7 Last Admin: 03/12/18 17:43 Dose: 650 mg Al Hydroxide/Mg Hydroxide (Mylanta Ii) 30 ml PO Q6H PRN PRN PRN Reason: Gastric burning Enoxaparin Sodium (Lovenox) 40 mg SC DAILY@1000 [facility] Norepinephrine Bitartrate 8 mg (/ Dextrose) 258 mls @ 9.67 mls/hr IV .[id number] COTY PRN Reason: 5 MCG/MIN Last Admin: 03/13/18 03:29 Dose: 9.67 mls/hr Piperacillin Sod/Tazobactam Sod (Zosyn) 3.375 gm in 50 mls @ 12.5 mls/hr IV Q8 COTY Potassium Chloride (Kcl 10meq/100ml) 10 meq in 100 mls @ 100 mls/hr IV BOLUS Q1H [facility] Stop: 03/13/18 11:59 Sodium Chloride () 1,000 mls @ 150 mls/hr IV .Q6H40M COTY Piperacillin Sod/Tazobactam Sod (Zosyn) 3.375 gm in 50 mls @ 100 mls/hr IV X1 ONE Stop: 03/13/18 09:29 Ibuprofen (Motrin) 600 mg PO Q6H PRN PRN PRN Reason: TEMP Last Admin: 03/12/18 22:46 Dose: 600 mg Magnesium Hydroxide (Milk Of Magnesia) 30 ml PO DAILY PRN PRN PRN Reason: Constipation Ondansetron HCl (Zofran) 4 mg IV Q8H PRN PRN PRN Reason: NAUSEA Pantoprazole Sodium (Protonix) 20 mg PO BID COTY Last Admin: 03/12/18 21:04 Dose: 20 mg Promethazine HCl (Phenergan) 12.5 mg IV Q6H PRN PRN PRN Reason: NAUSEA/VOMITING Sodium Chloride () 5 - 30 ml IV UD PRN PRN Reason: SALINE FLUSH Medical Necessity - Tobacco Use Smoking Status: Never smoker Tobacco Use: Non-smoker Assessment/Plan All Active Problems Sepsis (Acute) UTI (urinary tract infection) (Acute) 1. Sepsis 2/2 UTI s/p ureteral stenting for nephrolithiasis - C/s to URology - He was admitted to the ICU overnight and started on levophed - MAPs are >65 though SBP 88 - Low uop, so CW IVF - Switched from NS to 1/2NS for elevated NaCl - C/w the BiPAP and obtain an ABG for further evaluation - C/w Zosyn 2. GERD - stable - c/w PPI DVT: Lovenox Diet: Regular Code Visit Inpatient E&M: 76395 Subs Hosp L2
[2018-03-13] MEDS: 0.45% Normal Saline 1,000 ML 150 ML IV (08:49)
--- NOTE | 2018-03-13 09:03 | PN_ITS ---
Physical Exam Subjective: Patient transferred to ICU overnight for hypotension. Is awake and alert at present. No new complaints. Mild right flank pain. - Physical Exam Vital Signs Temp 97.6 F L 03/13/18 08:45 Pulse 71 03/13/18 08:45 Resp 19 H 03/13/18 08:45 BP 100/75 03/13/18 08:45 Pulse Ox 99 03/13/18 08:45 Intake & Output 03/11/18 03/12/18 03/13/18 23:59 23:59 23:59 Intake Total 2930 / 2930 2162.3 / 216.3 Output Total 475 / 475 125 / 125 Balance 2455 / 2455 203.3 / 2036.3 Weight: 72.178 kg 76.9 kg Intake: Oral 430 / 430 160 / 160 IV fluid/meds 2500 / 2500 2001.3 Output: Urine 275 / 275 125 / 125 #2 Urine 200 / 200 General: Alert, Oriented x3, Cooperative HEENT: Atraumatic, Normocephalic Oral: Dry Mucosa Neck: Trachea Midline Lungs: - - mask in place Abdomen: Soft, Non Tender Rectal: Exam deferred Groin: - - maza catheter draining concentrated yellow urine with debris. Extremities: No Calf Tenderness Skin: No rashes Neurological: Cranial nerves II-XII grossly intact, Neuro grossly intact Psych/Mental Status: Normal Affect Laboratory Tests Past 24 Hrs 03/12/18 03/13/18 03/13/18 20:24 03:00 03:30 WBC RBC Hgb Hct MCV MCH MCHC RDW RDW Differential Plt Count MPV Immature Gran % (Auto) Neut % (Auto) Lymph % (Auto) [place] % (Auto) Eos % (Auto) Baso % (Auto) Absolute Neuts (auto) Absolute Lymphs (auto) Total Counted PT INR Sodium 144 Potassium 3.3 L Chloride 111 H Carbon Dioxide 22.0 Anion Gap 11 BUN 18 Creatinine 1.13 Estim Creat Clear Calc 59.69 Est GFR (MDRD) Af Amer 83 Est GFR (MDRD) Non-Af 68 BUN/Creatinine Ratio 15.9 Glucose 113 H Lactic Acid 1.4 Calcium 7.0 L MRSA (PCR) Negative 03/13/18 03/13/18 03/13/18 03:30 03:30 03:40 WBC 20.7 H RBC 3.65 L Hgb 11.4 L Hct 33.9 L MCV 92.9 MCH 31.2 MCHC 33.6 RDW 13.1 RDW Differential 43.9 Plt Count 163 MPV 8.7 Immature Gran % (Auto) 0.400 Neut % (Auto) 91.3 H Lymph % (Auto) 2.9 L [place] % (Auto) 5.4 Eos % (Auto) 0.0 Baso % (Auto) 0.0 Absolute Neuts (auto) 18.9 H Absolute Lymphs (auto) 0.60 L Total Counted Not Reportable PT 18.8 H INR 1.6 Sodium Potassium Chloride Carbon Dioxide Anion Gap BUN Creatinine Estim Creat Clear Calc Est GFR (MDRD) Af Amer Est GFR (MDRD) Non-Af BUN/Creatinine Ratio Glucose Lactic Acid 1.6 Calcium MRSA (PCR) Medical Necessity - Tobacco Use Smoking Status: Never smoker Tobacco Use: Non-smoker Assessment/Plan All Active Problems Sepsis (Acute) UTI (urinary tract infection) (Acute) continue maza catheter drainage. continue zosyn and await culture results. no plans for surgical intervention at this time. continue ICU care.
[2018-03-13 09:10] LABS: Allen Test POS; Base Excess -5 mmol/L (-2 to +2); Blood Gas Specimen Type ART; EPAP 6; FI02 40; IPAP 14; PO2 140 mmHG (75-100); RR 12; SITE L Radial; SO2 99 % (95-99); Time Given 910; Total Carbon Dioxide 21 mmol/L; pCO2 33.8 mmHg (35-45); pH 7.38 (7.35-7.45)
--- NOTE | 2018-03-13 10:21 | CASEMGMT ---
RN CM Assessment completed, see Link. DC PLAN: Home -Pt and plan for him to return home. 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 -No needs identified @ this time. Nora TANNER RN ACM
[2018-03-13] MEDS: Enoxaparin 40 MG/0.4 ML Syringe SC (10:56)
[2018-03-13] MEDS: Pantoprazole Sodium 20 MG Tablet PO ×2 (10:56→22:00)
[2018-03-13] MEDS: 0.9% NaCl Peripheral Flush Adult/Peds IV (10:56)
[2018-03-13] MEDS: Acetaminophen 325 MG Tablet 650 MG PO (14:43)
[2018-03-13] MEDS: Piperacil/Tazobactam 3.375 GM/50 ML ML IV ×2 (14:43→22:00)
[2018-03-14] VITALS (18 sets, daily range): BP systolic 87–115; BP diastolic 57–68; PULSE 61–86; RESP 16–23; TEMP 36.2–37.6; O2SAT 92–98
[2018-03-14] MEDS: 0.45% Normal Saline 1,000 ML 150 ML IV (00:22)
[2018-03-14] MEDS: Acetaminophen 325 MG Tablet 650 MG PO (03:54)
[2018-03-14] MEDS: Piperacil/Tazobactam 3.375 GM/50 ML ML IV ×3 (05:35→22:15)
--- NOTE | 2018-03-14 07:04 | PCM.PN.INT ---
Subjective: The patient was seen and examined at the bedside this morning. Events from the last 24 hours have been reviewed. The patient is currently afebrile, hemodynamically stable and maintaining appropriate oxygen saturations on 2 L/min via nasal cannula. The patient's levophed requirement was discontinued yesterday at approximately 1400 hrs. He is currently overall net +6.3 L for the admission. Objective: The patient's most recent lab work, culture data and imaging studies have all been personally reviewed. Urine culture revealed greater than 100,000 CFU enterococcus species. Blood cultures have not shown any growth to date. Surface echocardiogram revealed normal LV size and function with an ejection fraction of approximately 55%. Normal pulmonary artery systolic pressures were noted. General: Alert, Oriented x3, Cooperative, No apparent distress, - - Sitting in bedside recliner. Family is present at the bedside. HEENT: Atraumatic, PERRLA, Normocephalic Oral: No Gingival or Mucosal Lesions/ Ulcerations Neck: Supple, No Nodes, Trachea Midline Lungs: Normal air movement, No rhonchi, No wheeze, No rales Cardiovascular: Regular rate, Regular Rhythm, Normal S1, Normal S2, No murmurs Abdomen: Bowel Sounds Present, Soft, Non Tender Extremities: No clubbing, No cyanosis, No edema Skin: No breakdown Musculoskeletal: No Tenderness to Palpation of Joints or Extremities Lymphatic: No Cervical, Supraclavicular, or Inguinal Adenopathy Neurological: Neuro grossly intact Psych/Mental Status: Alert and oriented to time, place, person, mood and affect Vital Signs Temp Pulse Resp BP Pulse Ox 97.2 F L 64 19 H 89/63 L 97 03/14/18 05:00 03/14/18 06:00 03/14/18 06:00 03/14/18 06:00 03/14/18 06:00 Oxygen Flow Rate (L/min) 2 Oxygen Delivery Method Nasal Cannula Weight: 166 lb 10.711 oz Body Mass Index (BMI) 24.2 Intake and Output for Last 24 Hours 03/12/18 03/13/18 03/14/18 23:59 23:59 23:59 Intake Total 2930 / 2930 4135.3 / 4135.3 1751 / 1751 Output Total 475 / 475 1357 / 1357 650 / 650 Balance 2455 / 2455 2778.3 / 2778.3 1101 / 1101 Labs (Last 48 Hours) 03/12/18 03/13/18 03/13/18 20:24 03:00 03:30 WBC RBC Hgb Hct MCV MCH MCHC RDW RDW Differential Plt Count MPV Immature Gran % (Auto) Neut % (Auto) Lymph % (Auto) [place] % (Auto) Eos % (Auto) Baso % (Auto) Absolute Neuts (auto) Absolute Lymphs (auto) Total Counted PT INR Specimen Type Sample Site pH Bicarbonate Actual POC Total CO2 Base Excess O2 Saturation O2 % ABG pCO2 ABG pO2 Valentín Test Respiration Rate O2 Delivery Device EPAP IPAP Blood Gas Notified Whom Blood Gas Notified Time Sodium 144 Potassium 3.3 L Chloride 111 H Carbon Dioxide 22.0 Anion Gap 11 BUN 18 Creatinine 1.13 Estim Creat Clear Calc 59.69 Est GFR (MDRD) Af Amer 83 Est GFR (MDRD) Non-Af 68 BUN/Creatinine Ratio 15.9 Glucose 113 H Lactic Acid 1.4 Calcium 7.0 L Troponin I MRSA (PCR) Negative 03/13/18 03/13/18 03/13/18 03:30 03:30 03:30 WBC 20.7 H RBC 3.65 L Hgb 11.4 L Hct 33.9 L MCV 92.9 MCH 31.2 MCHC 33.6 RDW 13.1 RDW Differential 43.9 Plt Count 163 MPV 8.7 Immature Gran % (Auto) 0.400 Neut % (Auto) 91.3 H Lymph % (Auto) 2.9 L [place] % (Auto) 5.4 Eos % (Auto) 0.0 Baso % (Auto) 0.0 Absolute Neuts (auto) 18.9 H Absolute Lymphs (auto) 0.60 L Total Counted Not Reportable PT 18.8 H INR 1.6 Specimen Type Sample Site pH Bicarbonate Actual POC Total CO2 Base Excess O2 Saturation O2 % ABG pCO2 ABG pO2 Valentín Test Respiration Rate O2 Delivery Device EPAP IPAP Blood Gas Notified Whom Blood Gas Notified Time Sodium Potassium Chloride Carbon Dioxide Anion Gap BUN Creatinine Estim Creat Clear Calc Est GFR (MDRD) Af Amer Est GFR (MDRD) Non-Af BUN/Creatinine Ratio Glucose Lactic Acid Calcium Troponin I 0.073 H MRSA (PCR) 03/13/18 03/13/18 03/13/18 03:40 09:08 10:05 WBC RBC Hgb Hct MCV MCH MCHC RDW RDW Differential Plt Count MPV Immature Gran % (Auto) Neut % (Auto) Lymph % (Auto) [place] % (Auto) Eos % (Auto) Baso % (Auto) Absolute Neuts (auto) Absolute Lymphs (auto) Total Counted PT INR Specimen Type ART Sample Site L Radial pH 7.38 Bicarbonate Actual 20.0 L POC Total CO2 21 Base Excess -5 L O2 Saturation 99 O2 % 40 ABG pCO2 33.8 L ABG pO2 140 H Valentín Test POS Respiration Rate 12 O2 Delivery Device Bi / C PAP EPAP 6 IPAP 14 Blood Gas Notified Whom ICU Blood Gas Notified Time 910 Sodium Potassium Chloride Carbon Dioxide Anion Gap BUN Creatinine Estim Creat Clear Calc Est GFR (MDRD) Af Amer Est GFR (MDRD) Non-Af BUN/Creatinine Ratio Glucose Lactic Acid 1.6 Calcium Troponin I 0.056 H MRSA (PCR) Clinical Impression(s) from Imaging Studies Abdomen/Pelvis CT 03/12/18 16:51 IMPRESSION: 1. Minimal bibasilar atelectasis. 2. Trace pericardial effusion. 3. Cholelithiasis. 4. Hepatic steatosis. 5. Right ureteral stent appearing in adequate position. There are several nonobstructing calculi in the lower pole of the right kidney measuring up to 6 mm. No calculi are seen along the length of the stent. A mild right hydronephrosis is present. There is right perinephric stranding. 6. 4.9 cm left renal cyst. 7. Colonic diverticulosis with no evidence of associated diverticulitis. 8. 2 mm calculus seen in the urinary bladder. 9. Small fat-containing umbilical hernia. Electronically Signed: Andres Sheppard MD at 17:33 EDT , Service support , Chest X-Ray 03/13/18 03:10 IMPRESSION: Possible right lower lobe pneumonia. Electronically Signed: Darrel Sheehan MD at 3:26 EDT Tel , Service support , Medical Necessity - Tobacco Use Smoking Status: Never smoker Tobacco Use: Non-smoker Assessment/Plan All Active Problems Sepsis (Acute) UTI (urinary tract infection) (Acute) RECOMMENDATIONS: 1. Continue Zosyn monotherapy for now, pending finalized infectious workup. 2. Antibiotics can likely be transitioned to p.o. route later today. 3. Discontinue continuous supplemental IV fluids. 4. Obtain repeat CBC, BMP and magnesium. 5. Encourage incentive spirometer use and mobilize patient as tolerated. IMPRESSIONS: 1. Septic shock secondary to enterococcus cystitis/pyelonephritis The patient recently underwent ureteral manipulation and stent placement only to go on to develop septic shock secondary to enterococcus cystitis/pyelonephritis. He was adequately volume resuscitated, but did require transient vasopressor support to maintain hemodynamic stability. He is currently hemodynamically stable and afebrile. He is responding clinically to his current antibiotic regimen. Zosyn can likely be de-escalated to a p.o. antibiotic course, pending susceptibilities. Supplemental IV fluids can be discontinued at this time. 2. Acute hypoxic respiratory failure Unclear etiology, as the patient's plain film chest x-ray was largely clear of any form of infiltrates. The patient did require transient BiPAP support, but has since been weaned aggressively from supplemental oxygen and is currently doing well on room air. We will continue to encourage incentive spirometer use and mobilization as tolerated. 3. Hypokalemia Electrolyte repletion is underway. Recommend rechecking BMP and magnesium level this morning. 4. Troponin elevation Likely secondary to demand ischemia in the setting of #1. Surface echocardiogram was largely unrevealing with normal systolic function noted. This note was generated with [employer] dictation software. It may contain incorrect words, spelling, and punctuation that were not noted in checking the note before signing. DISPOSITION: The patient is medically stable for transfer out of the intensive care unit. Code Visit Inpatient E&M: 58568 Subs Hosp L3
--- NOTE | 2018-03-14 07:08 | PN_ITS ---
Subjective: The patient was seen and examined at the bedside this morning. Events from the last 24 hours have been reviewed. The patient is currently afebrile, hemodynamically stable and maintaining appropriate oxygen saturations on 2 L/ min via nasal cannula. The patient's levophed requirement was discontinued yesterday at approximately 1400 hrs. He is currently overall net +6.3 L for the admission. Objective: The patient's most recent lab work, culture data and imaging studies have all been personally reviewed. Urine culture revealed greater than 100,000 CFU enterococcus species. Blood cultures have not shown any growth to date. Surface echocardiogram revealed normal LV size and function with an ejection fraction of approximately 55%. Normal pulmonary artery systolic pressures were noted. General: Alert, Oriented x3, Cooperative, No apparent distress, - - Sitting in bedside recliner. Family is present at the bedside. HEENT: Atraumatic, PERRLA, Normocephalic Oral: No Gingival or Mucosal Lesions/ Ulcerations Neck: Supple, No Nodes, Trachea Midline Lungs: Normal air movement, No rhonchi, No wheeze, No rales Cardiovascular: Regular rate, Regular Rhythm, Normal S1, Normal S2, No murmurs Abdomen: Bowel Sounds Present, Soft, Non Tender Extremities: No clubbing, No cyanosis, No edema Skin: No breakdown Musculoskeletal: No Tenderness to Palpation of Joints or Extremities Lymphatic: No Cervical, Supraclavicular, or Inguinal Adenopathy Neurological: Neuro grossly intact Psych/Mental Status: Alert and oriented to time, place, person, mood and affect Vital Signs Temp Pulse Resp BP Pulse Ox 97.2 F L 64 19 H 89/63 L 97 03/14/18 05:00 03/14/18 06:00 03/14/18 06:00 03/14/18 06:00 03/14/18 06:00 Oxygen Flow Rate (L/min) 2 Oxygen Delivery Method Nasal Cannula Weight: 166 lb 10.711 oz Body Mass Index (BMI) 24.2 Intake and Output for Last 24 Hours 03/12/18 03/13/18 03/14/18 23:59 23:59 23:59 Intake Total 2930 / 2930 4135.3 / 4135.3 1751 / 1751 Output Total 475 / 475 1357 / 1357 650 / 650 Balance 2455 / 2455 2778.3 / 2778.3 1101 / 1101 Labs (Last 48 Hours) 03/12/18 03/13/18 03/13/18 20:24 03:00 03:30 WBC RBC Hgb Hct MCV MCH MCHC RDW RDW Differential Plt Count MPV Immature Gran % (Auto) Neut % (Auto) Lymph % (Auto) [place] % (Auto) Eos % (Auto) Baso % (Auto) Absolute Neuts (auto) Absolute Lymphs (auto) Total Counted PT INR Specimen Type Sample Site pH Bicarbonate Actual POC Total CO2 Base Excess O2 Saturation O2 % ABG pCO2 ABG pO2 Valentín Test Respiration Rate O2 Delivery Device EPAP IPAP Blood Gas Notified Whom Blood Gas Notified Time Sodium 144 Potassium 3.3 L Chloride 111 H Carbon Dioxide 22.0 Anion Gap 11 BUN 18 Creatinine 1.13 Estim Creat Clear Calc 59.69 Est GFR (MDRD) Af Amer 83 Est GFR (MDRD) Non-Af 68 BUN/Creatinine Ratio 15.9 Glucose 113 H Lactic Acid 1.4 Calcium 7.0 L Troponin I MRSA (PCR) Negative 03/13/18 03/13/18 03/13/18 03:30 03:30 03:30 WBC 20.7 H RBC 3.65 L Hgb 11.4 L Hct 33.9 L MCV 92.9 MCH 31.2 MCHC 33.6 RDW 13.1 RDW Differential 43.9 Plt Count 163 MPV 8.7 Immature Gran % (Auto) 0.400 Neut % (Auto) 91.3 H Lymph % (Auto) 2.9 L [place] % (Auto) 5.4 Eos % (Auto) 0.0 Baso % (Auto) 0.0 Absolute Neuts (auto) 18.9 H Absolute Lymphs (auto) 0.60 L Total Counted Not Reportable PT 18.8 H INR 1.6 Specimen Type Sample Site pH Bicarbonate Actual POC Total CO2 Base Excess O2 Saturation O2 % ABG pCO2 ABG pO2 Valentín Test Respiration Rate O2 Delivery Device EPAP IPAP Blood Gas Notified Whom Blood Gas Notified Time Sodium Potassium Chloride Carbon Dioxide Anion Gap BUN Creatinine Estim Creat Clear Calc Est GFR (MDRD) Af Amer Est GFR (MDRD) Non-Af BUN/Creatinine Ratio Glucose Lactic Acid Calcium Troponin I 0.073 H MRSA (PCR) 03/13/18 03/13/18 03/13/18 03:40 09:08 10:05 WBC RBC Hgb Hct MCV MCH MCHC RDW RDW Differential Plt Count MPV Immature Gran % (Auto) Neut % (Auto) Lymph % (Auto) [place] % (Auto) Eos % (Auto) Baso % (Auto) Absolute Neuts (auto) Absolute Lymphs (auto) Total Counted PT INR Specimen Type ART Sample Site L Radial pH 7.38 Bicarbonate Actual 20.0 L POC Total CO2 21 Base Excess -5 L O2 Saturation 99 O2 % 40 ABG pCO2 33.8 L ABG pO2 140 H Valentín Test POS Respiration Rate 12 O2 Delivery Device Bi / C PAP EPAP 6 IPAP 14 Blood Gas Notified Whom ICU Blood Gas Notified Time 910 Sodium Potassium Chloride Carbon Dioxide Anion Gap BUN Creatinine Estim Creat Clear Calc Est GFR (MDRD) Af Amer Est GFR (MDRD) Non-Af BUN/Creatinine Ratio Glucose Lactic Acid 1.6 Calcium Troponin I 0.056 H MRSA (PCR) Clinical Impression(s) from Imaging Studies Abdomen/Pelvis CT 03/12/18 16:51 IMPRESSION: 1. Minimal bibasilar atelectasis. 2. Trace pericardial effusion. 3. Cholelithiasis. 4. Hepatic steatosis. 5. Right ureteral stent appearing in adequate position. There are several nonobstructing calculi in the lower pole of the right kidney measuring up to 6 mm. No calculi are seen along the length of the stent. A mild right hydronephrosis is present. There is right perinephric stranding. 6. 4.9 cm left renal cyst. 7. Colonic diverticulosis with no evidence of associated diverticulitis. 8. 2 mm calculus seen in the urinary bladder. 9. Small fat-containing umbilical hernia. Electronically Signed: Andres Sheppard MD at 17:33 EDT , Service support , Chest X-Ray 03/13/18 03:10 IMPRESSION: Possible right lower lobe pneumonia. Electronically Signed: Darrel Sheehan MD at 3:26 EDT Tel , Service support , Medical Necessity - Tobacco Use Smoking Status: Never smoker Tobacco Use: Non-smoker Assessment/Plan All Active Problems Sepsis (Acute) UTI (urinary tract infection) (Acute) RECOMMENDATIONS: 1. Continue Zosyn monotherapy for now, pending finalized infectious workup. 2. Antibiotics can likely be transitioned to p.o. route later today. 3. Discontinue continuous supplemental IV fluids. 4. Obtain repeat CBC, BMP and magnesium. 5. Encourage incentive spirometer use and mobilize patient as tolerated. IMPRESSIONS: 1. Septic shock secondary to enterococcus cystitis/pyelonephritis The patient recently underwent ureteral manipulation and stent placement only to go on to develop septic shock secondary to enterococcus cystitis/ pyelonephritis. He was adequately volume resuscitated, but did require transient vasopressor support to maintain hemodynamic stability. He is currently hemodynamically stable and afebrile. He is responding clinically to his current antibiotic regimen. Zosyn can likely be de-escalated to a p.o. antibiotic course, pending susceptibilities. Supplemental IV fluids can be discontinued at this time. 2. Acute hypoxic respiratory failure Unclear etiology, as the patient's plain film chest x-ray was largely clear of any form of infiltrates. The patient did require transient BiPAP support, but has since been weaned aggressively from supplemental oxygen and is currently doing well on room air. We will continue to encourage incentive spirometer use and mobilization as tolerated. 3. Hypokalemia Electrolyte repletion is underway. Recommend rechecking BMP and magnesium level this morning. 4. Troponin elevation Likely secondary to demand ischemia in the setting of #1. Surface echocardiogram was largely unrevealing with normal systolic function noted. This note was generated with [employer] dictation software. It may contain incorrect words, spelling, and punctuation that were not noted in checking the note before signing. DISPOSITION: The patient is medically stable for transfer out of the intensive care unit. Code Visit Inpatient E&M: 83603 Subs Hosp L3
[2018-03-14] MEDS: Enoxaparin 40 MG/0.4 ML Syringe SC (09:43)
[2018-03-14 11:05] LABS: Absolute Lymphocyte Count 0.87 X10^3/ul (0.83-4.51); Absolute Neutrophil Count 14.4 X10^3/uL (2.0-7.7); Basophil# 0.01 X10^3/uL; Basophil% 0.1 % (0-1); Eosinophil# 0.03 X10^3/uL; Eosinophils% 0.2 % (0-5); Hematocrit 35.6 % (40-54); Hemoglobin 11.6 g/dl (13.0-16.5); Lymphocyte # 0.87 X10^3/ul (4.0); Lymphocyte % 5.5 % (19-41); Mean Corp Hgb Conc 32.6 g/gl (32-36); Mean Corpuscular Hgb 30.5 pg (27.0-32.0); Mean Corpuscular Volume 93.7 fL (80-94); Mean Platelet Vol. 9.2 fl (6.2-12.0); Monocyte# 0.55 X10^3/uL; Monocyte% 3.5 % (0-10); Neutrophil # 14.42 X10^3/uL (2.7-7.7); Neutrophil % 90.6 % (47-70); Platelet Count 139 K/mm3 (150-450); RBC Distribution Width CV 13.8 % (11.6-14.6); RBC Distribution Width SD 47.2 fl (35.1-43.9); White Blood Count 15.9 K/mm3 (4.4-11.0)
[2018-03-14 11:06] LABS: Differential Indicated SCAN CRITERIA MET; POSITIVE COUNT NO; POSITIVE DIFFERENTIAL NO; POSITIVE MORPHOLOGY YES
[2018-03-14 11:08] LABS: Anion Gap 10 (5-15); BUN 18 mg/dL (7-18); BUN/Creat Ratio 15.7 RATIO (10-20); Calcium,Total 7.6 mg/dL (8.5-10.1); Chloride 106 mmol/L (98-107); Creatinine, Serum 1.15 mg/dL (0.70-1.30); EST Glomerular Filtration Rate 67 mL/min (>60); Est Glom Filt Rate - Afr Amer 81 mL/min (>60); Estimated Creatinine Clearance 58.65 ml/min; Glucose 186 mg/dL (74-106); Magnesium 1.8 mg/dL (1.6-2.6); Potassium 3.5 mmol/L (3.5-5.1); Sodium Level 137 mmol/L (136-145)
--- NOTE | 2018-03-14 17:51 | PCM.PN.HOSP ---
Patient Problems: Active and Suspected Problems Sepsis (Acute) UTI (urinary tract infection) (Acute) Subjective: f/u for complicated UTI and sepsis Patient seen and examined Family in the room and updated and answered questions and addressed concerns Vitals/I&O's: Vital Signs Temp Pulse Resp BP Pulse Ox 99.0 F 83 18 112/63 94 03/14/18 14:50 03/14/18 14:50 03/14/18 14:50 03/14/18 14:50 03/14/18 14:50 Oxygen Flow Rate (L/min) 2 Oxygen Delivery Method Room Air Weight: 75.6 kg Body Mass Index (BMI) 24.2 Intake and Output for Last 24 Hours 03/12/18 03/13/18 03/14/18 23:59 23:59 23:59 Intake Total 2930 / 2930 4135.3 / 4135.3 2444 / 2444 Output Total 475 / 475 1357 / 1357 1250 / 1250 Balance 2455 / 2455 2778.3 / 2778.3 1194 / 1194 General: Alert, Oriented x3, Cooperative, - - dyspneic and tachypneic, ill looking and lethargic HEENT: Atraumatic Oral: Dry Mucosa Neck: Supple Lungs: - - labored Abdomen: - - MWR Skin: No rashes Neurological: Cranial nerves II-XII grossly intact, Neuro grossly intact Psych/Mental Status: Anxious Laboratory Results 03/14/18 10:45: WBC 15.9 H, RBC 3.80 L, Hgb 11.6 L, Hct 35.6 L, MCV 93.7, MCH 30.5, MCHC 32.6, RDW 13.8, RDW Differential 47.2 H, Plt Count 139 L, MPV 9.2, Immature Gran % (Auto) 0.100, Neut % (Auto) 90.6 H, Lymph % (Auto) 5.5 L, [place] % (Auto) 3.5, Eos % (Auto) 0.2, Baso % (Auto) 0.1, Absolute Neuts (auto) 14.4 H, Absolute Lymphs (auto) 0.87, Total Counted Not Reportable 03/14/18 10:45: Sodium 137, Potassium 3.5, Chloride 106, Carbon Dioxide 21.0, Anion Gap 10, BUN 18, Creatinine 1.15, Estim Creat Clear Calc 58.65, Est GFR (MDRD) Af Amer 81, Est GFR (MDRD) Non-Af 67, BUN/Creatinine Ratio 15.7, Glucose 186 H, Calcium 7.6 L, Magnesium 1.8 Current Medications Acetaminophen (Tylenol) 650 mg PO Q6H PRN PRN PRN Reason: Mild Pain (scale 0-3)/T>100.7 Last Admin: 03/14/18 03:54 Dose: 650 mg Al Hydroxide/Mg Hydroxide (Mylanta Ii) 30 ml PO Q6H PRN PRN PRN Reason: Gastric burning Enoxaparin Sodium (Lovenox) 40 mg SC DAILY@1000 COTY Last Admin: 03/14/18 09:43 Dose: 40 mg Piperacillin Sod/Tazobactam Sod (Zosyn) 3.375 gm in 50 mls @ 12.5 mls/hr IV Q8 COTY Last Admin: 03/14/18 13:13 Dose: 12.5 mls/hr Ibuprofen (Motrin) 600 mg PO Q6H PRN PRN PRN Reason: TEMP Last Admin: 03/12/18 22:46 Dose: 600 mg Magnesium Hydroxide (Milk Of Magnesia) 30 ml PO DAILY PRN PRN PRN Reason: Constipation Ondansetron HCl (Zofran) 4 mg IV Q8H PRN PRN PRN Reason: NAUSEA Promethazine HCl (Phenergan) 12.5 mg IV Q6H PRN PRN PRN Reason: NAUSEA/VOMITING Sodium Chloride () 5 - 30 ml IV UD PRN PRN Reason: SALINE FLUSH Last Admin: 03/13/18 10:56 Dose: 10 ml Medical Necessity - Tobacco Use Smoking Status: Never smoker Tobacco Use: Non-smoker Assessment/Plan All Active Problems Sepsis (Acute) UTI (urinary tract infection) (Acute) 1. Complicated UTI following instrumentation. On IV antibiotics and improving 2. Severe sepsis with shock. required pressors initially but now off 3. Acute respiratory failure. hypoxic and required NIPPV with BIPAP initially. may have been due to acute lung injury from severe sepsis. Improving 4. Hypokalemia. Will replete and monitor 5. Bladder outlet obstruction with acute urinary retention. Gonzalez placed and patient wondering when this can be discontinued. Informed that Urology will make that decision. Will start on Flomax 6. Troponin elevation secondary to type II NSTEMI. WIll monitor 7. PT/OT and ensure ambulation Code Visit Inpatient E&M: 11673 Subs Hosp L3
--- NOTE | 2018-03-14 17:58 | PN_ITS ---
Patient Problems: Active and Suspected Problems Sepsis (Acute) UTI (urinary tract infection) (Acute) Subjective: f/u for complicated UTI and sepsis Patient seen and examined Family in the room and updated and answered questions and addressed concerns Vitals/I&O's: Vital Signs Temp Pulse Resp BP Pulse Ox 99.0 F 83 18 112/63 94 03/14/18 14:50 03/14/18 14:50 03/14/18 14:50 03/14/18 14:50 03/14/18 14:50 Oxygen Flow Rate (L/min) 2 Oxygen Delivery Method Room Air Weight: 75.6 kg Body Mass Index (BMI) 24.2 Intake and Output for Last 24 Hours 03/12/18 03/13/18 03/14/18 23:59 23:59 23:59 Intake Total 2930 / 2930 4135.3 / 4135.3 2444 / 2444 Output Total 475 / 475 1357 / 1357 1250 / 1250 Balance 2455 / 2455 2778.3 / 2778.3 1194 / 1194 General: Alert, Oriented x3, Cooperative, - - dyspneic and tachypneic, ill looking and lethargic HEENT: Atraumatic Oral: Dry Mucosa Neck: Supple Lungs: - - labored Abdomen: - - MWR Skin: No rashes Neurological: Cranial nerves II-XII grossly intact, Neuro grossly intact Psych/Mental Status: Anxious Laboratory Results 03/14/18 10:45: WBC 15.9 H, RBC 3.80 L, Hgb 11.6 L, Hct 35.6 L, MCV 93.7, MCH 30.5, MCHC 32.6, RDW 13.8, RDW Differential 47.2 H, Plt Count 139 L, MPV 9.2, Immature Gran % (Auto) 0.100, Neut % (Auto) 90.6 H, Lymph % (Auto) 5.5 L, [place] % (Auto) 3.5, Eos % (Auto) 0.2, Baso % (Auto) 0.1, Absolute Neuts (auto) 14.4 H , Absolute Lymphs (auto) 0.87, Total Counted Not Reportable 03/14/18 10:45: Sodium 137, Potassium 3.5, Chloride 106, Carbon Dioxide 21.0, Anion Gap 10, BUN 18, Creatinine 1.15, Estim Creat Clear Calc 58.65, Est GFR ( MDRD) Af Amer 81, Est GFR (MDRD) Non-Af 67, BUN/Creatinine Ratio 15.7, Glucose 186 H, Calcium 7.6 L, Magnesium 1.8 Current Medications Acetaminophen (Tylenol) 650 mg PO Q6H PRN PRN PRN Reason: Mild Pain (scale 0-3)/T>100.7 Last Admin: 03/14/18 03:54 Dose: 650 mg Al Hydroxide/Mg Hydroxide (Mylanta Ii) 30 ml PO Q6H PRN PRN PRN Reason: Gastric burning Enoxaparin Sodium (Lovenox) 40 mg SC DAILY@1000 COTY Last Admin: 03/14/18 09:43 Dose: 40 mg Piperacillin Sod/Tazobactam Sod (Zosyn) 3.375 gm in 50 mls @ 12.5 mls/hr IV Q8 COTY Last Admin: 03/14/18 13:13 Dose: 12.5 mls/hr Ibuprofen (Motrin) 600 mg PO Q6H PRN PRN PRN Reason: TEMP Last Admin: 03/12/18 22:46 Dose: 600 mg Magnesium Hydroxide (Milk Of Magnesia) 30 ml PO DAILY PRN PRN PRN Reason: Constipation Ondansetron HCl (Zofran) 4 mg IV Q8H PRN PRN PRN Reason: NAUSEA Promethazine HCl (Phenergan) 12.5 mg IV Q6H PRN PRN PRN Reason: NAUSEA/VOMITING Sodium Chloride () 5 - 30 ml IV UD PRN PRN Reason: SALINE FLUSH Last Admin: 03/13/18 10:56 Dose: 10 ml Medical Necessity - Tobacco Use Smoking Status: Never smoker Tobacco Use: Non-smoker Assessment/Plan All Active Problems Sepsis (Acute) UTI (urinary tract infection) (Acute) 1. Complicated UTI following instrumentation. On IV antibiotics and improving 2. Severe sepsis with shock. required pressors initially but now off 3. Acute respiratory failure. hypoxic and required NIPPV with BIPAP initially. may have been due to acute lung injury from severe sepsis. Improving 4. Hypokalemia. Will replete and monitor 5. Bladder outlet obstruction with acute urinary retention. Gonzalez placed and patient wondering when this can be discontinued. Informed that Urology will make that decision. Will start on Flomax 6. Troponin elevation secondary to type II NSTEMI. WIll monitor 7. PT/OT and ensure ambulation Code Visit Inpatient E&M: 67704 Subs Hosp L3
[2018-03-14] MEDS: Ibuprofen 600 MG Tablet PO (19:32)
[2018-03-14] MEDS: Tamsulosin HCl 0.4 MG Capsule PO (19:35)
[2018-03-15] VITALS (8 sets, daily range): BP systolic 112–136; BP diastolic 70–84; PULSE 62–90; RESP 16–18; TEMP 36.6–37.6; O2SAT 94–97
[2018-03-15] MEDS: Piperacil/Tazobactam 3.375 GM/50 ML ML IV (05:56)
--- NOTE | 2018-03-15 09:33 | RAD_ITS ---
STUDY: X-RAY CHEST REASON FOR EXAM: Male, 67 years old. Shortness of breath. TECHNIQUE: PA and lateral views of the chest. COMPARISON: Comparison is made with prior study dated March 13, 2018. FINDINGS: Since prior study, there now is evidence of a atelectasis and/or infiltrate in the left lower lobe. Stable increased markings in the right infrahilar region. Small bilateral pleural effusions. There is borderline cardiomegaly. Normal mediastinum and crys. Normal visualized pulmonary arteries. There is atherosclerotic tortuosity of the aortic arch and descending thoracic aorta. Normal visualized thoracic spine. Normal visualized ribs, clavicles, and shoulders. A right-sided double-J stent catheter is seen. RAD/Chest PA and Lateral IMPRESSION: Since prior study, there has been progressive atelectasis and/or infiltrate at both lung bases. Follow-up is recommended. Electronically Signed: Bucky Epps MD at 13:21 EDT Tel [phone], Service support ,
[2018-03-15] MEDS: Enoxaparin 40 MG/0.4 ML Syringe SC (11:29)
[2018-03-15] MEDS: AMOXICILLIN 875 MG TABLET PO (11:31)
[2018-03-15] MEDS: Ibuprofen 600 MG Tablet PO (13:21)
--- NOTE | 2018-03-15 13:44 | PCM.PROGNOTE ---
Patient Problems: Active and Suspected Problems Sepsis (Acute) UTI (urinary tract infection) (Acute) Subjective: The patient was seen and examined at the bedside this morning. Events from the last 24 hours have been reviewed. The patient is currently afebrile, hemodynamically stable and maintaining appropriate oxygen saturations on room air. No significant overnight issues were identified. - Physical Exam General: Alert, Cooperative, No apparent distress HEENT: Atraumatic, PERRLA, Normocephalic Oral: No Gingival or Mucosal Lesions/ Ulcerations Neck: Supple, No Nodes, Trachea Midline Lungs: No rhonchi, No wheeze, No rales, Diminished Cardiovascular: Regular rate, Regular Rhythm, Normal S1, Normal S2, No murmurs Abdomen: Bowel Sounds Present, Soft, Non Tender Extremities: No clubbing, No cyanosis, No edema Skin: No breakdown Musculoskeletal: No Tenderness to Palpation of Joints or Extremities Lymphatic: No Cervical, Supraclavicular, or Inguinal Adenopathy Neurological: Neuro grossly intact Psych/Mental Status: Normal Affect, Appropriate Vital Signs Temp Pulse Resp BP Pulse Ox 99.6 F H 80 18 136/84 H 97 03/15/18 13:19 03/15/18 13:19 03/15/18 13:19 03/15/18 13:19 03/15/18 13:19 Oxygen Flow Rate (L/min) 2 Oxygen Delivery Method Room Air Weight: 166 lb 10.711 oz Body Mass Index (BMI) 24.2 Intake and Output for Last 24 Hours 03/13/18 03/14/18 03/15/18 23:59 23:59 23:59 Intake Total 4135.3 / 4135.3 2515 / 2515 1181 / 1181 Output Total 1357 / 1357 2250 / 2250 1600 / 1600 Balance 2778.3 / 2778.3 265 / 265 -419 / -419 Labs (Last 48 Hours) 03/14/18 03/14/18 10:45 10:45 WBC 15.9 H RBC 3.80 L Hgb 11.6 L Hct 35.6 L MCV 93.7 MCH 30.5 MCHC 32.6 RDW 13.8 RDW Differential 47.2 H Plt Count 139 L MPV 9.2 Immature Gran % (Auto) 0.100 Neut % (Auto) 90.6 H Lymph % (Auto) 5.5 L [place] % (Auto) 3.5 Eos % (Auto) 0.2 Baso % (Auto) 0.1 Absolute Neuts (auto) 14.4 H Absolute Lymphs (auto) 0.87 Total Counted Not Reportable Sodium 137 Potassium 3.5 Chloride 106 Carbon Dioxide 21.0 Anion Gap 10 BUN 18 Creatinine 1.15 Estim Creat Clear Calc 58.65 Est GFR (MDRD) Af Amer 81 Est GFR (MDRD) Non-Af 67 BUN/Creatinine Ratio 15.7 Glucose 186 H Calcium 7.6 L Magnesium 1.8 Microbiology 03/12/18 14:15 Urine, Clean Catch Urine Culture - Final Enterococcus gallinarum 03/12/18 12:03 Blood Culture (Wb) - Anticubital Right Blood Culture - Preliminary No growth in 48 hours. 03/12/18 11:37 Blood Culture (Wb) - Anticubital Left Blood Culture - Preliminary No growth in 48 hours. Clinical Impression(s) from Imaging Studies Abdomen/Pelvis CT 03/12/18 16:51 IMPRESSION: 1. Minimal bibasilar atelectasis. 2. Trace pericardial effusion. 3. Cholelithiasis. 4. Hepatic steatosis. 5. Right ureteral stent appearing in adequate position. There are several nonobstructing calculi in the lower pole of the right kidney measuring up to 6 mm. No calculi are seen along the length of the stent. A mild right hydronephrosis is present. There is right perinephric stranding. 6. 4.9 cm left renal cyst. 7. Colonic diverticulosis with no evidence of associated diverticulitis. 8. 2 mm calculus seen in the urinary bladder. 9. Small fat-containing umbilical hernia. Electronically Signed: Andres Sheppard MD at 17:33 EDT , Service support , Chest X-Ray 03/13/18 03:10 IMPRESSION: Possible right lower lobe pneumonia. Electronically Signed: Darrel Sheehan MD at 3:26 EDT Tel , Service support , Chest X-Ray 03/15/18 09:33 IMPRESSION: Since prior study, there has been progressive atelectasis and/or infiltrate at both lung bases. Follow-up is recommended. Electronically Signed: Bucky Epps MD at 13:21 EDT Tel [phone], Service support , Medical Necessity - Tobacco Use Smoking Status: Never smoker Tobacco Use: Non-smoker Assessment/Plan All Active Problems Sepsis (Acute) UTI (urinary tract infection) (Acute) RECOMMENDATIONS: 1. Continue antibiotics 2. Encourage incentive spirometer use and mobilize patient as tolerated. 3. Lovenox for DVT prophylaxis IMPRESSIONS: 1. Septic shock secondary to enterococcus cystitis/pyelonephritis The patient recently underwent ureteral manipulation and stent placement only to go on to develop septic shock secondary to enterococcus cystitis/pyelonephritis. He was adequately volume resuscitated, but did require transient vasopressor support to maintain hemodynamic stability. He is currently hemodynamically stable and afebrile. He is responding clinically to his current antibiotic regimen. Zosyn can likely be de-escalated to a p.o. antibiotic course, pending susceptibilities. 2. Acute hypoxic respiratory failure Unclear etiology, as the patient's plain film chest x-ray was largely clear of any form of infiltrates. The patient did require transient BiPAP support, but has since been weaned aggressively from supplemental oxygen and is currently doing well on room air. We will continue to encourage incentive spirometer use and mobilization as tolerated. 3. Troponin elevation Likely secondary to demand ischemia in the setting of #1. Surface echocardiogram was largely unrevealing with normal systolic function noted. This note was generated with [employer] dictation software. It may contain incorrect words, spelling, and punctuation that were not noted in checking the note before signing. DISPOSITION: Given the lack of ongoing ICU needs, will sign off. Please call with any additional questions. Code Visit Inpatient E&M: 21626 Subs Hosp L2
--- NOTE | 2018-03-15 13:51 | PN_ITS ---
Patient Problems: Active and Suspected Problems Sepsis (Acute) UTI (urinary tract infection) (Acute) Subjective: The patient was seen and examined at the bedside this morning. Events from the last 24 hours have been reviewed. The patient is currently afebrile, hemodynamically stable and maintaining appropriate oxygen saturations on room air. No significant overnight issues were identified. - Physical Exam General: Alert, Cooperative, No apparent distress HEENT: Atraumatic, PERRLA, Normocephalic Oral: No Gingival or Mucosal Lesions/ Ulcerations Neck: Supple, No Nodes, Trachea Midline Lungs: No rhonchi, No wheeze, No rales, Diminished Cardiovascular: Regular rate, Regular Rhythm, Normal S1, Normal S2, No murmurs Abdomen: Bowel Sounds Present, Soft, Non Tender Extremities: No clubbing, No cyanosis, No edema Skin: No breakdown Musculoskeletal: No Tenderness to Palpation of Joints or Extremities Lymphatic: No Cervical, Supraclavicular, or Inguinal Adenopathy Neurological: Neuro grossly intact Psych/Mental Status: Normal Affect, Appropriate Vital Signs Temp Pulse Resp BP Pulse Ox 99.6 F H 80 18 136/84 H 97 03/15/18 13:19 03/15/18 13:19 03/15/18 13:19 03/15/18 13:19 03/15/18 13:19 Oxygen Flow Rate (L/min) 2 Oxygen Delivery Method Room Air Weight: 166 lb 10.711 oz Body Mass Index (BMI) 24.2 Intake and Output for Last 24 Hours 03/13/18 03/14/18 03/15/18 23:59 23:59 23:59 Intake Total 4135.3 / 4135.3 2515 / 2515 1181 / 1181 Output Total 1357 / 1357 2250 / 2250 1600 / 1600 Balance 2778.3 / 2778.3 265 / 265 -419 / -419 Labs (Last 48 Hours) 03/14/18 03/14/18 10:45 10:45 WBC 15.9 H RBC 3.80 L Hgb 11.6 L Hct 35.6 L MCV 93.7 MCH 30.5 MCHC 32.6 RDW 13.8 RDW Differential 47.2 H Plt Count 139 L MPV 9.2 Immature Gran % (Auto) 0.100 Neut % (Auto) 90.6 H Lymph % (Auto) 5.5 L [place] % (Auto) 3.5 Eos % (Auto) 0.2 Baso % (Auto) 0.1 Absolute Neuts (auto) 14.4 H Absolute Lymphs (auto) 0.87 Total Counted Not Reportable Sodium 137 Potassium 3.5 Chloride 106 Carbon Dioxide 21.0 Anion Gap 10 BUN 18 Creatinine 1.15 Estim Creat Clear Calc 58.65 Est GFR (MDRD) Af Amer 81 Est GFR (MDRD) Non-Af 67 BUN/Creatinine Ratio 15.7 Glucose 186 H Calcium 7.6 L Magnesium 1.8 Microbiology 03/12/18 14:15 Urine, Clean Catch Urine Culture - Final Enterococcus gallinarum 03/12/18 12:03 Blood Culture (Wb) - Anticubital Right Blood Culture - Preliminary No growth in 48 hours. 03/12/18 11:37 Blood Culture (Wb) - Anticubital Left Blood Culture - Preliminary No growth in 48 hours. Clinical Impression(s) from Imaging Studies Abdomen/Pelvis CT 03/12/18 16:51 IMPRESSION: 1. Minimal bibasilar atelectasis. 2. Trace pericardial effusion. 3. Cholelithiasis. 4. Hepatic steatosis. 5. Right ureteral stent appearing in adequate position. There are several nonobstructing calculi in the lower pole of the right kidney measuring up to 6 mm. No calculi are seen along the length of the stent. A mild right hydronephrosis is present. There is right perinephric stranding. 6. 4.9 cm left renal cyst. 7. Colonic diverticulosis with no evidence of associated diverticulitis. 8. 2 mm calculus seen in the urinary bladder. 9. Small fat-containing umbilical hernia. Electronically Signed: Andres Sheppard MD at 17:33 EDT , Service support , Chest X-Ray 03/13/18 03:10 IMPRESSION: Possible right lower lobe pneumonia. Electronically Signed: Darrel Sheehan MD at 3:26 EDT Tel , Service support , Chest X-Ray 03/15/18 09:33 IMPRESSION: Since prior study, there has been progressive atelectasis and/or infiltrate at both lung bases. Follow-up is recommended. Electronically Signed: Bucky Epps MD at 13:21 EDT Tel [phone], Service support , Medical Necessity - Tobacco Use Smoking Status: Never smoker Tobacco Use: Non-smoker Assessment/Plan All Active Problems Sepsis (Acute) UTI (urinary tract infection) (Acute) RECOMMENDATIONS: 1. Continue antibiotics 2. Encourage incentive spirometer use and mobilize patient as tolerated. 3. Lovenox for DVT prophylaxis IMPRESSIONS: 1. Septic shock secondary to enterococcus cystitis/pyelonephritis The patient recently underwent ureteral manipulation and stent placement only to go on to develop septic shock secondary to enterococcus cystitis/ pyelonephritis. He was adequately volume resuscitated, but did require transient vasopressor support to maintain hemodynamic stability. He is currently hemodynamically stable and afebrile. He is responding clinically to his current antibiotic regimen. Zosyn can likely be de-escalated to a p.o. antibiotic course, pending susceptibilities. 2. Acute hypoxic respiratory failure Unclear etiology, as the patient's plain film chest x-ray was largely clear of any form of infiltrates. The patient did require transient BiPAP support, but has since been weaned aggressively from supplemental oxygen and is currently doing well on room air. We will continue to encourage incentive spirometer use and mobilization as tolerated. 3. Troponin elevation Likely secondary to demand ischemia in the setting of #1. Surface echocardiogram was largely unrevealing with normal systolic function noted. This note was generated with [employer] dictation software. It may contain incorrect words, spelling, and punctuation that were not noted in checking the note before signing. DISPOSITION: Given the lack of ongoing ICU needs, will sign off. Please call with any additional questions. Code Visit Inpatient E&M: 72004 Subs Hosp L2
[2018-03-15] MEDS: Diphenoxylate/Atrop 1 Tablet 2 TABLET PO ×2 (14:28→21:31)
[2018-03-15] MEDS: Ciprofloxacin 500 MG Tablet PO (14:29)
--- NOTE | 2018-03-15 16:28 | PCM.PN.HOSP ---
Patient Problems: Active and Suspected Problems Sepsis (Acute) UTI (urinary tract infection) (Acute) Subjective: f/u for severe sepsis and complicated UTI patient seen and examined Looks better. States he does not really feel better Appetite still quite poor. Encouraged him that this will return with convalescence Vitals/I&O's: Vital Signs Temp Pulse Resp BP Pulse Ox 98.7 F 75 18 123/78 H 96 03/15/18 15:39 03/15/18 15:39 03/15/18 15:39 03/15/18 15:39 03/15/18 15:39 Oxygen Flow Rate (L/min) 2 Oxygen Delivery Method Room Air Weight: 75.6 kg Body Mass Index (BMI) 24.2 Intake and Output for Last 24 Hours 03/13/18 03/14/18 03/15/18 23:59 23:59 23:59 Intake Total 4135.3 / 4135.3 2515 / 2515 1181 / 1181 Output Total 1357 / 1357 2250 / 2250 1600 / 1600 Balance 2778.3 / 2778.3 265 / 265 -419 / -419 General: Alert, Oriented x3, Cooperative, Lethargic - mildly ill looking, less dypneic HEENT: Atraumatic Oral: Moist Mucosa Neck: Supple Lungs: Clear to auscultation - but diminished in the bases abd with fine crackles Cardiovascular: Regular rate Neurological: Cranial nerves II-XII grossly intact, Neuro grossly intact Psych/Mental Status: Depressed Current Medications Acetaminophen (Tylenol) 650 mg PO Q6H PRN PRN PRN Reason: Mild Pain (scale 0-3)/T>100.7 Last Admin: 03/14/18 03:54 Dose: 650 mg Al Hydroxide/Mg Hydroxide (Mylanta Ii) 30 ml PO Q6H PRN PRN PRN Reason: Gastric burning Diphenoxylate HCl/Atropine (Lomotil) 2 tablet PO TID COTY Stop: 03/16/18 06:01 Last Admin: 03/15/18 14:28 Dose: 2 tablet Enoxaparin Sodium (Lovenox) 40 mg SC DAILY@1000 COTY Last Admin: 03/15/18 11:29 Dose: 40 mg Ibuprofen (Motrin) 600 mg PO Q6H PRN PRN PRN Reason: TEMP Last Admin: 03/15/18 13:21 Dose: 600 mg Lactobacillus Acidophilus (Acidophilus) 2 tablet PO TID [facility] Last Admin: 03/15/18 14:29 Dose: 2 tablet Magnesium Hydroxide (Milk Of Magnesia) 30 ml PO DAILY PRN PRN PRN Reason: Constipation Ondansetron HCl (Zofran) 4 mg IV Q8H PRN PRN PRN Reason: NAUSEA Promethazine HCl (Phenergan) 12.5 mg IV Q6H PRN PRN PRN Reason: NAUSEA/VOMITING Sodium Chloride () 5 - 30 ml IV UD PRN PRN Reason: SALINE FLUSH Last Admin: 03/13/18 10:56 Dose: 10 ml Tamsulosin HCl (Flomax) 0.4 mg PO DAILY@1730 [facility] Last Admin: 03/14/18 19:35 Dose: 0.4 mg Medical Necessity - Tobacco Use Smoking Status: Never smoker Tobacco Use: Non-smoker Assessment/Plan All Active Problems Sepsis (Acute) UTI (urinary tract infection) (Acute) 1. Complicated UTI following instrumentation of upper urinary tract and stent placement. IV abx changed to oral If stable tomorrow then discharge home 2. Severe sepsis with shock. required pressors initially but now off 3. Acute respiratory failure. hypoxic and required NIPPV with BIPAP initially. May have been due to acute lung injury from severe sepsis. Resolved 4. Hypokalemia. Will replete and monitor 5. Bladder outlet obstruction with acute urinary retention. d/w urology and ok to take out for voiding trial. Started on Flomax 6. Troponin elevation secondary to type II NSTEMI. Will monitor 7. PT/OT and ensure ambulation
--- NOTE | 2018-03-15 16:35 | PN_ITS ---
Patient Problems: Active and Suspected Problems Sepsis (Acute) UTI (urinary tract infection) (Acute) Subjective: f/u for severe sepsis and complicated UTI patient seen and examined Looks better. States he does not really feel better Appetite still quite poor. Encouraged him that this will return with convalescence Vitals/I&O's: Vital Signs Temp Pulse Resp BP Pulse Ox 98.7 F 75 18 123/78 H 96 03/15/18 15:39 03/15/18 15:39 03/15/18 15:39 03/15/18 15:39 03/15/18 15:39 Oxygen Flow Rate (L/min) 2 Oxygen Delivery Method Room Air Weight: 75.6 kg Body Mass Index (BMI) 24.2 Intake and Output for Last 24 Hours 03/13/18 03/14/18 03/15/18 23:59 23:59 23:59 Intake Total 4135.3 / 4135.3 2515 / 2515 1181 / 1181 Output Total 1357 / 1357 2250 / 2250 1600 / 1600 Balance 2778.3 / 2778.3 265 / 265 -419 / -419 General: Alert, Oriented x3, Cooperative, Lethargic - mildly ill looking, less dypneic HEENT: Atraumatic Oral: Moist Mucosa Neck: Supple Lungs: Clear to auscultation - but diminished in the bases abd with fine crackles Cardiovascular: Regular rate Neurological: Cranial nerves II-XII grossly intact, Neuro grossly intact Psych/Mental Status: Depressed Current Medications Acetaminophen (Tylenol) 650 mg PO Q6H PRN PRN PRN Reason: Mild Pain (scale 0-3)/T>100.7 Last Admin: 03/14/18 03:54 Dose: 650 mg Al Hydroxide/Mg Hydroxide (Mylanta Ii) 30 ml PO Q6H PRN PRN PRN Reason: Gastric burning Diphenoxylate HCl/Atropine (Lomotil) 2 tablet PO TID COT[facility] Stop: 03/16/18 06:01 Last Admin: 03/15/18 14:28 Dose: 2 tablet Enoxaparin Sodium (Lovenox) 40 mg SC DAILY@1000 COTY Last Admin: 03/15/18 11:29 Dose: 40 mg Ibuprofen (Motrin) 600 mg PO Q6H PRN PRN PRN Reason: TEMP Last Admin: 03/15/18 13:21 Dose: 600 mg Lactobacillus Acidophilus (Acidophilus) 2 tablet PO TID [facility] Last Admin: 03/15/18 14:29 Dose: 2 tablet Magnesium Hydroxide (Milk Of Magnesia) 30 ml PO DAILY PRN PRN PRN Reason: Constipation Ondansetron HCl (Zofran) 4 mg IV Q8H PRN PRN PRN Reason: NAUSEA Promethazine HCl (Phenergan) 12.5 mg IV Q6H PRN PRN PRN Reason: NAUSEA/VOMITING Sodium Chloride () 5 - 30 ml IV UD PRN PRN Reason: SALINE FLUSH Last Admin: 03/13/18 10:56 Dose: 10 ml Tamsulosin HCl (Flomax) 0.4 mg PO DAILY@1730 [facility] Last Admin: 03/14/18 19:35 Dose: 0.4 mg Medical Necessity - Tobacco Use Smoking Status: Never smoker Tobacco Use: Non-smoker Assessment/Plan All Active Problems Sepsis (Acute) UTI (urinary tract infection) (Acute) 1. Complicated UTI following instrumentation of upper urinary tract and stent placement. IV abx changed to oral If stable tomorrow then discharge home 2. Severe sepsis with shock. required pressors initially but now off 3. Acute respiratory failure. hypoxic and required NIPPV with BIPAP initially. May have been due to acute lung injury from severe sepsis. Resolved 4. Hypokalemia. Will replete and monitor 5. Bladder outlet obstruction with acute urinary retention. d/w urology and ok to take out for voiding trial. Started on Flomax 6. Troponin elevation secondary to type II NSTEMI. Will monitor 7. PT/OT and ensure ambulation
[2018-03-15] MEDS: Tamsulosin HCl 0.4 MG Capsule PO (17:00)
[2018-03-16 02:00] VITALS: BP 115/71; PULSE 71; RESP 16; TEMP 37.1; O2SAT 94
[2018-03-16] MEDS: Diphenoxylate/Atrop 1 Tablet 2 TABLET PO (05:38)
[2018-03-16 06:11] LABS: Absolute Lymphocyte Count 0.91 X10^3/ul (0.83-4.51); Absolute Neutrophil Count 6.9 X10^3/uL (2.0-7.7); Basophil# 0.02 X10^3/uL; Basophil% 0.2 % (0-1); Eosinophils% 1.1 % (0-5); Hematocrit 35.1 % (40-54); Hemoglobin 11.9 g/dl (13.0-16.5); Lymphocyte # 0.91 X10^3/ul (4.0); Lymphocyte % 10.3 % (19-41); Mean Corp Hgb Conc 33.9 g/gl (32-36); Mean Corpuscular Volume 91.4 fL (80-94); Mean Platelet Vol. 8.4 fl (6.2-12.0); Monocyte% 10.2 % (0-10); Neutrophil # 6.89 X10^3/uL (2.7-7.7); Neutrophil % 77.7 % (47-70); Platelet Count 201 K/mm3 (150-450); RBC Distribution Width CV 13.3 % (11.6-14.6); RBC Distribution Width SD 43.9 fl (35.1-43.9); Red Blood Count 3.84 M/mm3 (4.6-6.2); White Blood Count 8.9 K/mm3 (4.4-11.0)
[2018-03-16 06:14] LABS: Differential Indicated SCAN CRITERIA MET; POSITIVE COUNT NO; POSITIVE DIFFERENTIAL NO; POSITIVE MORPHOLOGY YES
[2018-03-16 06:16] LABS: ALB/GLOB Ratio 0.6 RATIO (0.9-2.4); AST(SGOT) 33 U/L (15-37); Alanine Aminotransfer ALT/SGPT 43 U/L (16-61); Albumin, Serum 2.2 g/dL (3.2-5.0); Alkaline Phosphatase 79 U/L (45-117); Anion Gap 8 (5-15); BUN 13 mg/dL (7-18); BUN/Creat Ratio 15.5 RATIO (10-20); Calcium,Total 8.1 mg/dL (8.5-10.1); Chloride 107 mmol/L (98-107); Creatinine, Serum 0.84 mg/dL (0.70-1.30); EST Glomerular Filtration Rate 96 mL/min (>60); Est Glom Filt Rate - Afr Amer 116 mL/min (>60); Globulin 3.7 g/dL (2.2-4.2); Glucose 98 mg/dL (74-106); Potassium 3.6 mmol/L (3.5-5.1); Protein, Total 5.9 g/dL (6.4-8.2); Sodium Level 141 mmol/L (136-145)
[2018-03-16 07:48] VITALS: O2SAT 94
[2018-03-16 07:50] VITALS: BP 120/50; PULSE 62; RESP 16; TEMP 37.3; O2SAT 92
--- NOTE | 2018-03-16 09:40 | NURSING ---
pt reports feeling nauseated. Primary nurse notified
[2018-03-16] MEDS: 0.9% NaCl Peripheral Flush Adult/Peds IV ×2 (09:57→17:33)
[2018-03-16] MEDS: proMETHazine 25 MG/ML Syringe 12.5 MG IV ×2 (09:58→17:33)
[2018-03-16] MEDS: Enoxaparin 40 MG/0.4 ML Syringe SC (10:04)
[2018-03-16 12:22] VITALS: BP 119/71; PULSE 80; RESP 16; TEMP 37.5; O2SAT 93
--- NOTE | 2018-03-16 14:28 | PCM.DC.SUM ---
Discharge Date and Diagnosis - Problem List Patient Problems: Active and Suspected Problems Sepsis (Acute) UTI (urinary tract infection) (Acute) Complicated UTI (urinary tract infection) (Acute) Date of Admission: 03/12/18 Date of Discharge: 03/16/18 - Primary Discharge Diagnosis Active and Suspected Problems Severe Sepsis (Acute) Complicated UTI (urinary tract infection) (Acute) - Secondary Discharge Diagnosis Chronic Problems Renal calculi (Chronic) GERD (gastroesophageal reflux disease) (Chronic) Esophageal ulcer (Chronic) Hospital Course and Treatment Operations: None Procedures: None Summary of Care Provided: The patient is a 67 year old M who recently underwent ureteral stenting for urinary calculi. Presented after some time with high grade fever and chills and was found to be in severe sepsis with shock. Aggressive IV fluid resuscitation undertaken but patient ultimately required vasopressors in order to maintain adequate perfusing pressures and hemodynamics. Patient therefore was initially managed in the ICU. With aggressive antibiotic treatment patient began to improve, was able to be weaned off pressors, stabilized therefore and transferred to the regular nursing floor where antibiotics were continued. Patient daily has continued to gradually improve. Was seen by urology and critical care Today Mr. Brown is feeling better and appetite is improved. Deemed stable for discharge. may return to work in 2 weeks and may see PCP in 1 week[] Discharge Diet: No Restrictions Discharge Activity: Return to Normal Activity, No Restrictions Return to work on:: 03/31/18 May resume sexual activity in: No Restrictions Call your doctor if you observe: Fever of 101 or Higher Home Medications: Medications to take at Discharge Cimetidine [Tagamet Hb] 200 mg PO PRN PRN 03/12/18 Hydrocodone/Acetaminophen [Hydrocodone-Acetamin 5-325 mg] 1 tab PO Q6H PRN PRN 03/12/18 Naproxen 500 mg PO DAILY 03/12/18 Acetaminophen [Tylenol Tablet] 650 mg PO Q6H PRN PRN #30 tab 03/16/18 Ciprofloxacin [Cipro] 500 mg PO BID 14 Days #28 tab 03/16/18 L. Rhamnosus GG/Inulin [Culturelle Probiotics Capsule] 1 ea PO BID 30 Days cap 03/16/18 Ondansetron HCl [Zofran] 4 mg PO 4X/DAY PRN PRN 5 Days #10 tab 03/16/18 Tamsulosin HCl [Flomax] 0.4 mg PO DAILY@1730 30 Days #30 cap 03/16/18 Following Prescrptions Were Given to Patient: Acetaminophen [Tylenol Tablet] 650 mg PO Q6H PRN PRN #30 tab PRN Reason: Mild Pain (scale 0-3)/T>100.7 Ondansetron HCl [Zofran] 4 mg PO 4X/DAY PRN PRN 5 Days #10 tab PRN Reason: Nausea/Vomiting Tamsulosin HCl [Flomax] 0.4 mg PO DAILY@1730 30 Days #30 cap Ciprofloxacin [Cipro] 500 mg PO BID 14 Days #28 tab L. Rhamnosus GG/Inulin [Culturelle Probiotics Capsule] 1 ea PO BID 30 Days cap Primary Care Physician: Care Physician,No Primary [Primary Care Provider] - Disposition: Home Minutes spent on discharge:: 35 Patient Condition:: Fair Medical Necessity - Tobacco Use Smoking Status: Never smoker Tobacco Use: Non-smoker Meaningful Use Info Meaningful Use Diagnoses (Choose all that apply): None applicable Code Visit Inpatient E&M: 99865 Disch Hosp
[2018-03-16 16:00] VITALS: BP 117/70; PULSE 76; RESP 16; TEMP 37.1; O2SAT 90
--- NOTE | 2018-03-16 17:07 | DCINST_ITS ---
- Discharge Diagnoses Current Active Problems: Current Active and Chronic Problems Complicated UTI (urinary tract infection) (Acute) Sepsis (Acute) UTI (urinary tract infection) (Acute) Renal calculi (Chronic) GERD (gastroesophageal reflux disease) (Chronic) Esophageal ulcer (Chronic) You will use the following diet at home:: No restrictions, Regular Your food should be the consistency of: Regular Your liquids should be the consistency of: Regular/Thin Discharge Activity: Return to Normal Activity, No Restrictions Return to work on:: 03/31/18 May resume sexual activity in: No Restrictions Call your doctor if you observe: Fever of 101 or Higher Allergies/Adverse Reactions: Allergies morphine Allergy (Verified 03/12/18 10:54) Vomiting Medications to take at Discharge Cimetidine [Tagamet Hb] 200 mg PO PRN PRN 03/12/18 Hydrocodone/Acetaminophen [Hydrocodone-Acetamin 5-325 mg] 1 tab PO Q6H PRN PRN 03/12/18 Naproxen 500 mg PO DAILY 03/12/18 Acetaminophen [Tylenol Tablet] 650 mg PO Q6H PRN PRN #30 tab 03/16/18 Ciprofloxacin [Cipro] 500 mg PO BID 14 Days #28 tab 03/16/18 L. Rhamnosus GG/Inulin [Culturelle Probiotics Capsule] 1 ea PO BID 30 Days cap 03/16/18 Ondansetron HCl [Zofran] 4 mg PO 4X/DAY PRN PRN 5 Days #10 tab 03/16/18 Tamsulosin HCl [Flomax] 0.4 mg PO DAILY@1730 30 Days #30 cap 03/16/18 The following prescriptions were given: Acetaminophen [Tylenol Tablet] 650 mg PO Q6H PRN PRN #30 tab PRN Reason: Mild Pain (scale 0-3)/T>100.7 Ondansetron HCl [Zofran] 4 mg PO 4X/DAY PRN PRN 5 Days #10 tab PRN Reason: Nausea/Vomiting Tamsulosin HCl [Flomax] 0.4 mg PO DAILY@1730 30 Days #30 cap Ciprofloxacin [Cipro] 500 mg PO BID 14 Days #28 tab L. Rhamnosus GG/Inulin [Culturelle Probiotics Capsule] 1 ea PO BID 30 Days cap Primary Care Physician: Care Physician,No Primary [Primary Care Provider] - Please follow up with your Primary Care Physician in: 1-2 weeks Test Results: Test results from this visit will be discussed in further detail at your follow- up appointment, if applicable. Proposed Discharge Date: 03/16/18
[2018-03-16] MEDS: Tamsulosin HCl 0.4 MG Capsule PO (17:33)
== END 2018-03-16 17:49 | disposition home or self-care (01) | DRG 862 ==
LOC: ED 11:56 → MS2 16:51 → ICU 03-13 02:42 → MS3 03-14 11:29 → ICU 03-14 11:30
PROVIDERS: Family Medicine; Internal Medicine Critical Care Medicine; Admitting Provider Family Medicine; Emergency Provider Emergency Medicine; Visit Provider Internal Medicine
DX: T81.4XXA Infection following a procedure, initial encounter (principal); A41.81 Sepsis due to Enterococcus; R65.21 Severe sepsis with septic shock; J96.01 Acute respiratory failure with hypoxia; I21.A1 Myocardial infarction type 2; N39.0 Urinary tract infection, site not specified; K21.9 Gastro-esophageal reflux disease without esophagitis; N32.0 Bladder-neck obstruction; R33.9 Retention of urine, unspecified; N20.0 Calculus of kidney; Z96.0 Presence of urogenital implants
CPT/HCPCS: 36415; 36600; 71045; 71046; 74176; 80048; 80053; 81001; 82803; 83605; 83735; 84484; 85025; 85610; 87040; 87077; 87086; 87088; 87186; 87641; 93306; 94002; 97162; 97165; 99283; J7030; J7040; A4216; J0696; J2405

== ENCOUNTER → 2018-04-16 10:30 | Outpatient (CLI) | payer MEDICARE, OTHER, SELFPAY ==
--- NOTE | 2018-04-16 10:34 | RAD_ITS ---
STUDY: X-RAY - ABDOMEN/PELVIS REASON FOR EXAM: Male, 67 years old. Follow-up examination for right kidney stone. TECHNIQUE: Single AP view of the abdomen / pelvis. COMPARISON: None. FINDINGS: There is a moderate amount of colonic fecal material. The visualized liver, spleen and kidneys are grossly normal in size and morphology. There are calcified phleboliths in the pelvis. Normal visualized osseous structures. RAD/Abdomen Single View IMPRESSION: Phleboliths are seen in the pelvis. Electronically Signed: Bucky Epps MD at 11:15 EDT Tel [phone], Service support ,
== END ==
PROVIDERS: Referring Provider Urology; Visit Provider Urology
DX: N20.0 Calculus of kidney (principal)
CPT/HCPCS: 74018

== ENCOUNTER → 2018-04-17 12:55 | Outpatient (CLI) | payer MEDICARE, OTHER, SELFPAY | PROVIDERS: Family Provider Family Medicine; PCP Family Medicine; Visit Provider Urology | DX: Z00.00 Encounter for general adult medical examination without abnormal findings (principal) ==